=== PATIENT | male | born 1965 | race Caucasian/White ===

== ENCOUNTER 2017-08-21 15:21 | Observation (INO) | payer BC ==
[2017-08-21] MEDS ORDERED: PROVENTIL 2.5 MG/3 ML NEB IH ONE ×2 (15:56→16:04)
--- NOTE | 2017-08-21 16:04 | ERPHSYRPT ---
- History of Present Illness Time Seen by Provider: 08/21/17 15:49 Source: patient Exam Limitations: no limitations Patient Subjective Stated Complaint: increasing sob since sunday night. thinks he might have pneumonia. hx myasthenia gravis, dx 8 yrs ago. is being treated with immune globulin since february. also having some chest pressure with breathing. Triage Nursing Assessment: ambulated to room with slight sob. patient is unable to lie down. states breathing is worse with lieing and sitting. states he feels better if he stands. breath sounds very diminished throughout. Physician History: 52-year-old white male with history of myasthenia gravis, high blood pressure, arrives with complaint of shortness of breath increasing since Sunday 4 days ago. Patient states he's been short of breath he feels tight with breathing in his chest has no vomiting no diarrhea no fevers Past medical history includes myasthenia gravis, high blood pressure Past surgical history includes knee surgery Social history patient chews tobacco Timing/Duration: day(s) (4 days) Activities at Onset: none Severity of Dyspnea-Max: moderate Severity of Dyspnea-Current: moderate Possible Cause: occasional episodes Modifying Factors: Improves With: nothing Associated Symptoms: chest pain/discomfort (patient feels tightness with breathing), tightness, No intermittent, No anxiety, No cough, No edema, No fever , No insomnia, No loss of appetite, No lightheadedness, No wheezing, No weakness , No ankle swelling, No chills, No hemoptysis, No calf pain, No dizziness, No heaviness, No heart racing, No lightheadedness, No leg swelling, No muscle spasms feet, No muscle spasms hands, No painful breathing, No productive cough, No sweating, No tingling face, No tingling hands International travel in last 2 weeks: No Allergies/Adverse Reactions: No Known Drug Allergies Allergy (Verified 08/21/17 15:48) Home Medications: Aspirin EC 81 mg 81 mg PO DAILY 10/02/12 [History] Azathioprine 50 mg PO QID 10/02/12 [History] Losartan/Hydrochlorothiazide [Losartan-Hctz 100-12.5 mg Tab] 1 each PO DAILY [History] Pyridostigmine [place] 1 tab PO UD PRN 04/05/15 [History] Fluticasone/Salmeterol [Airduo Respiclick 113-14 Mcg] 1 each IH BID 08/21/17 [ History] Nebivolol HCl [Bystolic] 10 mg PO DAILY 08/21/17 [History] Hx Tetanus, Diphtheria Vaccination/Date Given: No Hx Influenza Vaccination/Date Given: No Hx Pneumococcal Vaccination/Date Given: No - Review of Systems Constitutional: Malaise, No Fever, No Chills, No Fatigue, No Lethargy, No Night Sweats, No Weakness, No Weight Loss Eyes: No Symptoms Ears, Nose, & Throat: No Symptoms Respiratory: Dyspnea, Other (tightness in chest with breathing), No Cough, No Wheezing Cardiac: No Chest Pain, No Edema, No Syncope Abdominal/Gastrointestinal: No Abdominal Pain, No Nausea, No Vomiting, No Diarrhea Genitourinary Symptoms: No Dysuria Musculoskeletal: No Back Pain, No Neck Pain Skin: No Rash Neurological: No Dizziness, No Focal Weakness, No Sensory Changes Psychological: No Symptoms Endocrine: No Symptoms All Other Systems: Reviewed and Negative - Past Medical History Pertinent Past Medical History: Yes Neurological History: Other ENT History: No Pertinent History Cardiac History: Hypertension Respiratory History: No Pertinent History Endocrine Medical History: Other Musculoskeletal History: Other GI Medical History: No Pertinent History History: No Pertinent History Psycho-Social History: No Pertinent History Male Reproductive Disorders: No Pertinent History Other Medical History: MYTHENIS GRAVIS - Past Surgical History Past Surgical History: Yes Neuro Surgical History: No Pertinent History Cardiac: No Pertinent History Respiratory: No Pertinent History Gastrointestinal: No Pertinent History Genitourinary: Other Musculoskeletal: Orthopedic Surgery Male Surgical History: No Pertinent History Other Surgical History: knee surgery right (torn ligament,arthroscopy) - Social History Smoking Status: Never smoker Exposure to second hand smoke: No Drug Use: none Patient Lives Alone: No - Nursing Vital Signs Nursing Vital Signs: Initial Vital Signs Temperature 97.9 F 08/21/17 15:31 Pulse Rate 103 H 08/21/17 15:31 Respiratory Rate 24 08/21/17 15:31 Blood Pressure 131/79 08/21/17 15:31 O2 Sat by Pulse Oximetry 96 08/21/17 15:31 Pain Scale Pain Intensity 0 - Physical Exam General Appearance: moderate distress, alert Eye Exam: PERRL/EOMI Ears, Nose, Throat Exam: hearing grossly normal, normal ENT inspection, normal pharynx, No abnormal TM (R), No abnormal TM (L) Neck Exam: normal inspection, supple Respiratory Exam: diminished breath sounds Cardiovascular/Chest Exam: normal heart sounds, regular rate/rhythm Abdominal/Gastrointestinal Exam: soft, No tenderness, No distention, No mass Extremity Exam: non-tender, normal range of motion, normal inspection, no calf tenderness, no pedal edema Peripheral Pulses Exam: dorsalis-pedis (R): 2+, dorsalis-pedis (L): 2+ Neurologic Exam: alert, oriented x 3, 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, 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 tested, sensation nml, No motor deficits Skin Exam: normal color, warm, No dry SpO2 Interpretation: normal (96%) SpO2: 96 Oxygen Delivery: Room Air - Course Nursing assessment & vital signs reviewed: Yes EKG Interpreted by Me: RATE (98 bpm), Sinus Rhythm, Other (EKG: Sinus rhythm, 98 bpm, normal axis, no acute ST or T wave changes, essentially normal EKG) - Radiology Exams Chest X-ray Interpretation: Discussed w/ radiologist (chest x-ray: moderately underinflated chestwith right infrahilar infiltrate versus atelectasis) Ordered Tests: Active Orders 24 hr Category Date Time Status [employer] Driver STAT Care 08/21/17 15:57 Active EKG-ER Only STAT Care 08/21/17 15:56 Active IV Insertion STAT Care 08/21/17 15:56 Active Oxygen-ED Only NASAL CANNULA 3 lpm Care 08/21/17 15:56 Active Pulse Oximetry (ED) STAT Care 08/21/17 15:56 Active CHEST 1 VIEW (PORTABLE) Stat Exams 08/21/17 15:57 Completed BLOOD CULTURE Stat Lab 08/21/17 16:00 Received CBC W DIFF Stat Lab 08/21/17 16:03 Completed CMP Stat Lab 08/21/17 16:03 Completed CULTURE,SPUTUM Stat Lab 08/21/17 17:46 Ordered D-DIMER QUANTITATION Stat Lab 08/21/17 16:03 Completed NT PRO BNP Stat Lab 08/21/17 16:03 Completed TROPONIN Q3H Lab 08/21/17 16:03 Completed TROPONIN Q3H Lab 08/21/17 19:00 Ordered TROPONIN Q3H Lab 08/21/17 22:00 Ordered TROPONIN Q3H Lab 08/22/17 01:00 Ordered TROPONIN Q3H Lab 08/22/17 04:00 Ordered VENOUS BLOOD GAS Stat Lab 08/21/17 15:56 Completed Respiratory Nebulizer STAT RT 08/21/17 15:58 Active Medication Summary Generic Name Dose Route Start Last Admin Trade Name Kirt PRN Reason Stop Dose Admin Prednisone 20 mg 08/22/17 18:15 08/21/17 18:19 Deltasone 20 Mg PO 08/22/17 18:16 20 mg STAT ONE Administration Discontinued Medications Generic Name Dose Route Start Last Admin Trade Name Kirt PRN Reason Stop Dose Admin Albuterol Sulfate 2.5 mg 08/21/17 15:56 Proventil 2.5 Mg/3 Ml Neb IH 08/21/17 15:57 STAT ONE Albuterol Sulfate Confirm 08/21/17 16:04 Proventil 2.5 Mg/3 Ml Neb Administered 08/21/17 16:05 Dose 2.5 mg IH .STK-MED ONE Ceftriaxone Sodium/Dextrose 1 g in 50 mls @ 100 mls/hr 08/21/17 16:58 17:38 Rocephin 1 Gm-D5w 50 Ml Bag IV 08/21/17 17:27 100 mls/hr STAT STA Administration Sodium Chloride 1,000 mls @ 999 mls/hr 08/21/17 16:58 08/21/17 17:39 Sodium Chloride 0.9% 1000 Ml IV 08/21/17 17:58 999 mls/hr .Q1H1M STA Administration Sodium Chloride Confirm 08/21/17 17:37 Sodium Chloride 0.9% 1000 Ml Administered 08/21/17 17:38 Dose 1,000 mls @ ud .ROUTE .STK-MED ONE Ceftriaxone Sodium/Dextrose Confirm 08/21/17 17:38 Rocephin 1 Gm-D5w 50 Ml Bag Administered 08/21/17 17:39 Dose 1 g in 50 mls @ ud IV .STK-MED ONE Oseltamivir Phosphate 75 mg 08/21/17 18:12 08/21/17 18:19 Tamiflu 75mg Capsule PO 08/21/17 18:13 75 mg STAT ONE Administration Oseltamivir Phosphate Confirm 08/21/17 18:18 Tamiflu 75mg Capsule Administered 08/21/17 18:19 Dose 75 mg PO .STK-MED ONE Prednisone Confirm 08/21/17 18:18 Deltasone 20 Mg Administered 08/21/17 18:19 Dose 20 mg .ROUTE .STK-MED ONE Lab/Rad Data: Laboratory Result Diagrams 08/21/17 16:03 08/21/17 16:03 Laboratory Results 08/21/17 08/21/17 08/21/17 Range/Units 17:00 16:03 16:03 WBC (4.0-10.5) K/mm3 RBC (4.1-5.6) M/mm3 Hgb (12.5-18.0) gm/dl Hct (42-50) % MCV (78-100) fl MCH (26-32) pg MCHC (32-36) g/dl RDW (11.5-14.0) % Plt Count (150-450) K/mm3 MPV (6-9.5) fl Gran % (36.0-66.0) % Lymphocytes % (24.0-44.0) % Monocytes % (0.0-12.0) % Eosinophils % (0.00-5.0) % Basophils % (0.0-0.4) % Basophils # (0-0.4) D-Dimer 353.87 (0-500) ng/mL VBG pH (7.32-7.42) VBG pCO2 at Pat Temp (42-55) mm/Hg VBG pO2 at Pat Temp (25-40) mm/Hg VBG HCO3 (22-28) meq/L VBG O2 Sat (Rupesh) (95-100) VBG Base Excess (-2.0-2.0) VBG Hemoglobin VBG Carboxyhemoglobin (0.0-6.9) % T HGB POC Potassium (3.5-5.1) Sodium (136-145) mEq/L Potassium (3.5-5.1) mEq/L Chloride (98-107) mEq/L Carbon Dioxide (21-32) mEq/L Anion Gap (5-15) MEQ/L BUN (9-20) mg/dL Creatinine (0.55-1.30) mg/dl Estimated GFR ML/MIN Glucose (70-110) MG/DL Calcium (8.5-10.1) mg/dL Total Bilirubin (0.2-1.0) mg/dL AST (15-37) U/L ALT (12-78) U/L Alkaline Phosphatase (46-116) U/L Troponin I < 0.017 (0.000-0.056) ng/ml NT-Pro-B Natriuret Pep (0-125) pg/ml Serum Total Protein (6.4-8.2) gm/dL Albumin (3.4-5.0) g/dL Influenza Type A Ag POSITIVE (NEGATIVE) Influenza Type B Ag NEGATIVE (NEGATIVE) RSV (PCR) NEGATIVE (Negative) 08/21/17 08/21/17 08/21/17 Range/Units 16:03 16:03 15:56 WBC 8.7 (4.0-10.5) K/mm3 RBC 4.83 (4.1-5.6) M/mm3 Hgb 15.1 (12.5-18.0) gm/dl Hct 47.7 (42-50) % MCV 98.8 (78-100) fl MCH 31.3 (26-32) pg MCHC 31.7 L (32-36) g/dl RDW 14.4 H (11.5-14.0) % Plt Count 233 (150-450) K/mm3 MPV 10.2 H (6-9.5) fl Gran % 75.3 H (36.0-66.0) % Lymphocytes % 8.7 L (24.0-44.0) % Monocytes % 11.8 (0.0-12.0) % Eosinophils % 3.9 (0.00-5.0) % Basophils % 0.3 (0.0-0.4) % Basophils # 0.03 (0-0.4) D-Dimer (0-500) ng/mL VBG pH 7.36 (7.32-7.42) VBG pCO2 at Pat Temp 60 H (42-55) mm/Hg VBG pO2 at Pat Temp 30 (25-40) mm/Hg VBG HCO3 33.9 H* (22-28) meq/L VBG O2 Sat (Rupesh) 63.2 L (95-100) VBG Base Excess 6.2 H (-2.0-2.0) VBG Hemoglobin 15.2 VBG Carboxyhemoglobin 2.5 (0.0-6.9) % T HGB POC Potassium 3.9 (3.5-5.1) Sodium 142 (136-145) mEq/L Potassium 3.5 (3.5-5.1) mEq/L Chloride 104 (98-107) mEq/L Carbon Dioxide 28.7 (21-32) mEq/L Anion Gap 13.1 (5-15) MEQ/L BUN 18 (9-20) mg/dL Creatinine 1.14 (0.55-1.30) mg/dl Estimated GFR > 60 ML/MIN Glucose 101 (70-110) MG/DL Calcium 9.3 (8.5-10.1) mg/dL Total Bilirubin 0.90 (0.2-1.0) mg/dL AST 26 (15-37) U/L ALT 43 (12-78) U/L Alkaline Phosphatase 68 (46-116) U/L Troponin I (0.000-0.056) ng/ml NT-Pro-B Natriuret Pep 65 (0-125) pg/ml Serum Total Protein 8.8 H (6.4-8.2) gm/dL Albumin 4.0 (3.4-5.0) g/dL Influenza Type A Ag (NEGATIVE) Influenza Type B Ag (NEGATIVE) RSV (PCR) (Negative) - Progress Progress: improved Air Movement: fair Progress Note: 08/21/17 18:22 52-year-old white male with a history of mild stimulator gravis arrives with complaint of shortness of breath cough symptoms since Sunday, 4 days ago patient felt like he has pneumonia. On arrival patient had diminished breath sounds throughout he had a fairly frequent cough. Patient's oxygen saturation was stable. Patient was given albuterol treatment patient's chest x-ray right perihilar infiltrate versus atelectasis was noted patient's EKG sinus rhythm 98 bpm normal axis no acute ST or T wave changes noted Patient's lab work CBC white blood cell 8.7 hemoglobin 15.1 hematocrit 47.7 d- dimer 353 Venous gases pH 7.36 PCO2 60 Chemistry is stable sodium 142 potassium 3.5 chloride 104 bicarbonate 28.7 BUN 18 creatinine 1.14 glucose 101 troponin is less than 0.017 BNP is 65 Patient's influenza is positive Patient is given IV normal saline, blood cultures and sputum cultures were obtained patient given Rocephin. Because of the patient's history of myasthenia gravis and reluctance to give corticosteroids I discussed the case with Dr. SANDRA Calderon. He stated that we can give the patient 20 mg one time dose of prednisone here in the emergency room will give patient Tamiflu. He recommended patient could be observed overnight with continued Rocephin, Zithromax, Tamiflu, albuterol treatments, IV fluids. He stated that he would most likely see the patient tomorrow. I've discussed the case with Dr. Ng who is guidance and control system engineer for Dr. Caro. She is agreeable with this course of treatment Will go ahead and place patient on observation. . Blood Culture(s) Obtained: Yes Antibiotics given: Yes - Departure Time of Disposition: 18:25 Departure Disposition: Observation Clinical Impression: Bronchitis with bronchospasm, perihilar pneumonia, Influenza A, History of myasthenia gravis Condition: Fair Critical Care Time: No Referrals: NICHOLAS CARO MD [Primary Care Provider] -
[2017-08-21 16:11] LABS: BASOPHIL % 0.3 % (0.0-0.4); Basophil (Absolute #) 0.03 (0-0.4); Eosinophil % 3.9 % (0.00-5.0); Eosinophil (Absolute #) 0.34 (0-0.5); Granulocyte Absolute (ANC) 6.56 (1.4-6.9); Granulocytes % 75.3 % (36.0-66.0); Hematocrit 47.7 % (42-50); Hemoglobin 15.1 gm/dl (12.5-18.0); Lymphocyte (Absolute #) 0.76 (1.0-4.6); Lymphocytes % 8.7 % (24.0-44.0); Mean Cell Volume 98.8 fl (78-100); Mean Corpuscular Hemoglobin 31.3 pg (26-32); Mean Corpuscular Hgb Concent. 31.7 g/dl (32-36); Mean Platelet Volume 10.2 fl (6-9.5); Monocyte (Absolute #) 1.03 (0.0-1.3); Monocytes % 11.8 % (0.0-12.0); Platelet Count 233 K/mm3 (150-450); Red Blood Count 4.83 M/mm3 (4.1-5.6); Red Cell Distribution Width 14.4 % (11.5-14.0); White Blood Count 8.7 K/mm3 (4.0-10.5)
--- NOTE | 2017-08-21 16:15 | XRAY ---
Indication: Short of breath. Comparison: April 10, 2017. Portable chest moderately underinflated today with now right infrahilar infiltrate versus atelectasis. Remaining heart, lungs, and bony thorax unremarkable.
[2017-08-21 16:16] LABS: VBG BASE EXCESS 6.2 (-2.0-2.0); VBG CARBOXYHEMOGLOBIN 2.5 % T HGB (0.0-6.9); VBG HCO3- 33.9 meq/L (22-28); VBG HEMOGLOBIN 15.2; VBG O2 SATURATION 63.2 (95-100); VBG POTASSIUM 3.9 (3.5-5.1); VBG pH 7.36 (7.32-7.42)
[2017-08-21 16:29] LABS: ALKALINE PHOSPHATASE 68 U/L (46-116); ANION GAP 13.1 MEQ/L (5-15); BLOOD UREA NITROGEN 18 mg/dL (9-20); CHLORIDE 104 mEq/L (98-107); Calcium 9.3 mg/dL (8.5-10.1); Carbon Dioxide 28.7 mEq/L (21-32); Creatinine 1 1.14 mg/dl (0.55-1.30); EST GLOMERULAR FILTRATION RATE > 60 ML/MIN; Glucose 101 MG/DL (70-110); NT PRO BNP 65 pg/ml (0-125); Potassium 3.5 mEq/L (3.5-5.1); SGOT/AST 26 U/L (15-37); SGPT/ALT 43 U/L (12-78); SODIUM 142 mEq/L (136-145); Total Protein 8.8 gm/dL (6.4-8.2)
[2017-08-21] MEDS ORDERED: Sodium Chloride 0.9% 1000 ML 1,000 ML IV STA (16:58)
[2017-08-21] MEDS ORDERED: ROCEPHIN 1 Gm-D5w 50 ml Bag** 1 G/50 ML IVPB IV STA (16:58)
[2017-08-21] MEDS ORDERED: Sodium Chloride 0.9% 1000 ML 1,000 ML ONE (17:37)
[2017-08-21] MEDS ORDERED: ROCEPHIN 1 Gm-D5w 50 ml Bag** 1 G/50 ML IVPB IV ONE (17:38)
[2017-08-21 18:10] LABS: INFLUENZA A POSITIVE (NEGATIVE); INFLUENZA B NEGATIVE (NEGATIVE); RESPIRATORY SYNCTIAL VIRUS NEGATIVE (Negative)
[2017-08-21] MEDS ORDERED: Tamiflu 75MG Capsule PO ONE ×2 (18:12→18:18)
[2017-08-21] MEDS ORDERED: DELTASONE 20 MG ONE (18:18)
[2017-08-21] MEDS: Tamiflu 75MG Capsule PO SCH (20:34)
[2017-08-21] MEDS ORDERED: PROVENTIL Solution 2.5 MG/0.5 ML IH ONE (21:18)
[2017-08-21] MEDS ORDERED: ECOTRIN 81 MG PO ONE (21:22)
[2017-08-21] MEDS: Sodium Chloride 0.9% 1000 ML 1,000 ML IV SCH (21:42)
[2017-08-21] MEDS ORDERED: hydroDIURIL 25 MG PO ONE (22:00)
[2017-08-21] MEDS ORDERED: Cozaar 50 MG PO ONE (22:00)
[2017-08-21] MEDS: PROVENTIL 2.5 MG/3 ML NEB IH PRN (22:07)
[2017-08-21] MEDS: ADVAIR 250-50 DISKUS 14 DOSE IH SCH (22:09)
[2017-08-21] MEDS ORDERED: Bystolic 5 MG PO ONE (22:30)
[2017-08-22 06:06] LABS: Hematocrit 43.3 % (42-50); Hemoglobin 13.4 gm/dl (12.5-18.0); Mean Cell Volume 99.3 fl (78-100); Mean Corpuscular Hemoglobin 30.7 pg (26-32); Mean Corpuscular Hgb Concent. 30.9 g/dl (32-36); Mean Platelet Volume 10.2 fl (6-9.5); Platelet Count 223 K/mm3 (150-450); Red Blood Count 4.36 M/mm3 (4.1-5.6); Red Cell Distribution Width 14.3 % (11.5-14.0); White Blood Count 8.4 K/mm3 (4.0-10.5)
[2017-08-22 06:40] LABS: ALBUMIN 3.4 g/dL (3.4-5.0); ALKALINE PHOSPHATASE 56 U/L (46-116); ANION GAP 10.1 MEQ/L (5-15); BLOOD UREA NITROGEN 18 mg/dL (9-20); CHLORIDE 107 mEq/L (98-107); Calcium 9.2 mg/dL (8.5-10.1); Carbon Dioxide 29.3 mEq/L (21-32); Creatinine 1 0.99 mg/dl (0.55-1.30); EST GLOMERULAR FILTRATION RATE > 60 ML/MIN; Glucose 138 MG/DL (70-110); SGOT/AST 23 U/L (15-37); SGPT/ALT 39 U/L (12-78); SODIUM 142 mEq/L (136-145); Total Protein 7.8 gm/dL (6.4-8.2)
[2017-08-22] MEDS ORDERED: PYRIDOSTIGMINE BROMIDE PO PRN (07:26)
[2017-08-22] MEDS: ADVAIR 250-50 DISKUS 14 DOSE IH SCH ×2 (07:28→18:44)
[2017-08-22 07:31] LABS: Lymphocytes 11 % (24-44); Monocyte 10 % (0.0-12.0); Neutrophils 79 % (36.-66.); Platelet Estimate NORMAL (NORMAL); Total Cells Counted 100
[2017-08-22] MEDS ORDERED: MEDICATION INTERVENTION MC PRN ×2 (07:40→07:48)
[2017-08-22] MEDS: Sodium Chloride 0.9% 1000 ML 1,000 ML IV SCH ×2 (08:48→20:13)
--- NOTE | 2017-08-22 09:11 | PCM.HP ---
History of Present Illness - Chief Complaint Chief Complaint: SOB, bronchitis History of Present Illness: is a 52 year old male who presented to the ER with cough, fever and shortness of breath. He has progressively been feeling worse over the last day before arrival. He has improved since admission and is feeling slightly better today. - Review of Systems Constitutional: Fever, Chills Respiratory: Cough, Short Of Breath Cardiac: No Chest Pain, No Edema, No Syncope Abdominal/Gastrointestinal: No Abdominal Pain, No Nausea, No Vomiting, No Diarrhea Skin: No Rash All Other Systems: Reviewed and Negative Medications & Allergies Home Medications: Home Medication List Aspirin EC 81 mg 81 mg PO DAILY 10/02/12 [History Confirmed 08/21/17] Azathioprine 50 mg PO QID 10/02/12 [History Confirmed 08/21/17] Losartan/Hydrochlorothiazide [Losartan-Hctz 100-12.5 mg Tab] 1 each PO DAILY [History Confirmed 08/21/17] Pyridostigmine [place] 60 tab PO UD PRN 04/05/15 [History Confirmed 08/21/17] Fluticasone/Salmeterol [Airduo Respiclick 113-14 Mcg] 1 each IH BID 08/21/17 [ History Confirmed 08/21/17] Nebivolol HCl [Bystolic] 10 mg PO DAILY 08/21/17 [History Confirmed 08/21/17] Allergies/Adverse Reactions: Allergies Allergy/AdvReac Type Severity Reaction Status Date / Time No Known Drug Allergies Allergy Verified 08/21/17 15:48 - Past Medical History Past Medical History: Yes Neurological History: Other ENT History: No Pertinent History Cardiac History: Hypertension Respiratory History: No Pertinent History Endocrine Medical History: Other Musculoskelatal History: Other GI Medical History: No Pertinent History History: No Pertinent History Pyscho-Social History: No Pertinent History Male Reproductive Disorders: No Pertinent History Comment: MYASTHENIA GRAVIS - Past Surgical History Past Surgical History: Yes Neuro Surgical History: No Pertinent History Cardiac History: No Pertinent History Respiratory Surgery: No Pertinent History GI Surgical History: No Pertinent History Genitourinary Surgical Hx: Other Musculskeletal Surgical Hx: Orthopedic Surgery Male Surgical History: No Pertinent History Other Surgical History: knee surgery right (torn ligament,arthroscopy) - Social History Smoking Status: Never smoker Exposure to second hand smoke: No Alcohol: None Drug Use: none - Physical Exam Vital Signs: Vital Signs - 24 hr Temp Pulse Resp BP Pulse Ox 08/22/17 07:33 73 20 92 L 08/22/17 07:14 97.5 F 70 20 117/66 91 L 08/22/17 04:00 97.9 F 74 20 121/58 94 L 08/22/17 00:00 98.4 F 104 H 20 129/65 92 L 08/21/17 22:07 88 20 94 L 08/21/17 20:13 97.9 F 94 H 23 134/76 94 L 08/21/17 18:50 97.9 F 94 H 23 134/76 94 L 08/21/17 18:29 102 H 20 124/89 96 08/21/17 18:26 96 08/21/17 17:15 97 H 22 116/81 95 08/21/17 16:20 107 H 22 116/72 92 L 08/21/17 16:19 91 L 08/21/17 15:31 97.9 F 103 H 24 131/79 96 Oxygen-Last 24 hours O2 Percentage 4 Liters = 36% O2 Percentage 2 Liters = 28% O2 Percentage 2 Liters = 28% O2 Percentage 2 Liters = 28% General Appearance: no apparent distress, alert, obese Respiratory Exam: normal breath sounds, lungs clear, rhonchi (right base), No respiratory distress Cardiovascular Exam: regular rate/rhythm, normal heart sounds, normal peripheral pulses Gastrointestinal/Abdomen Exam: soft, normal bowel sounds, No tenderness, No mass Extremity Exam: normal inspection, normal range of motion, pelvis stable Results - Labs Lab/Micro Results: Lab Results-Last 24 Hours 08/21/17 08/22/17 08/22/17 Range/Units 19:05 06:00 06:00 WBC 8.4 (4.0-10.5) K/mm3 RBC 4.36 (4.1-5.6) M/mm3 Hgb 13.4 (12.5-18.0) gm/dl Hct 43.3 (42-50) % MCV 99.3 (78-100) fl MCH 30.7 (26-32) pg MCHC 30.9 L (32-36) g/dl RDW 14.3 H (11.5-14.0) % Plt Count 223 (150-450) K/mm3 MPV 10.2 H (6-9.5) fl Segmented Neutrophils 79 H (36.-66.) % Lymphocytes (Manual) 11 L (24-44) % Monocytes (Manual) 10 (0.0-12.0) % Differential Comment NORMAL Platelet Estimate NORMAL (NORMAL) Sodium 142 (136-145) mEq/L Potassium 4.0 (3.5-5.1) mEq/L Chloride 107 (98-107) mEq/L Carbon Dioxide 29.3 (21-32) mEq/L Anion Gap 10.1 (5-15) MEQ/L BUN 18 (9-20) mg/dL Creatinine 0.99 (0.55-1.30) mg/dl Estimated GFR > 60 ML/MIN Glucose 138 H (70-110) MG/DL Calcium 9.2 (8.5-10.1) mg/dL Total Bilirubin 0.60 (0.2-1.0) mg/dL AST 23 (15-37) U/L ALT 39 (12-78) U/L Alkaline Phosphatase 56 (46-116) U/L Troponin I < 0.017 (0.000-0.056) ng/ml Serum Total Protein 7.8 (6.4-8.2) gm/dL Albumin 3.4 (3.4-5.0) g/dL Microbiology 08/21/17 18:55 Gram Stain - Final Sputum - Expectorant - Other Procedures and Tests Respiratory Therapy 08/21/17 19:00 Respiratory MDI BID 08/21/17 21:54 Oxygen NASAL CANNULA 2 lpm Respiratory Nebulizer PRN Assessment/Plan (1) Influenza A Current Visit: Yes Status: Acute Assessment & Plan: on tamiflu, push fluids Code(s): J10.1 - FLU DUE TO OTH IDENT INFLUENZA VIRUS W OTH RESP MANIFEST (2) Pneumonia Current Visit: Yes Status: Acute Assessment & Plan: on rocephin and zithromax, nebs Code(s): J18.9 - PNEUMONIA, UNSPECIFIED ORGANISM (3) History of myasthenia gravis Current Visit: Yes Status: Acute Code(s): Z86.69 - PERSONAL HISTORY OF DIS OF THE NERVOUS SYS AND SENSE ORGANS
[2017-08-22] MEDS: Tamiflu 75MG Capsule PO SCH ×2 (09:46→20:57)
[2017-08-22] MEDS ORDERED: ASPIRIN 81 MG PO SCH (10:00)
[2017-08-22] MEDS ORDERED: NON-FORMULARY ITEM (Losartan/Hydrochlorothiazide [Losartan-Hctz 100-12.5 Mg Tab] 1 EACH) PO SCH (10:00)
[2017-08-22] MEDS ORDERED: Bystolic 5 MG PO SCH (10:00)
[2017-08-22] MEDS ORDERED: Cozaar 50 MG PO SCH (10:00)
[2017-08-22] MEDS ORDERED: ROCEPHIN 1 Gm-D5w 50 ml Bag** 1 G/50 ML IVPB IV SCH (10:00)
[2017-08-22] MEDS ORDERED: Zithromax 500 MG/ 250 ML NaCl Premix 500 MG/250 ML IVPB IV SCH (10:00)
[2017-08-22] MEDS ORDERED: ECOTRIN 81 MG PO SCH ×2 (10:00)
[2017-08-22] MEDS ORDERED: NON-FORMULARY ITEM (Nebivolol Hcl [Bystolic] 10 MG) PO SCH (10:00)
[2017-08-22] MEDS ORDERED: AZATHIOPRINE 50 MG PO SCH (10:00)
[2017-08-22] MEDS ORDERED: hydroDIURIL 25 MG PO SCH (10:00)
[2017-08-22] MEDS ORDERED: PATIENT OWN MEDICATION PO PRN ×2 (10:51→11:50)
[2017-08-22] MEDS ORDERED: ENOXAPARIN SODIUM SQ SCH (11:00)
[2017-08-22] MEDS: PROVENTIL 2.5 MG/3 ML NEB IH PRN (11:25)
[2017-08-22] MEDS ORDERED: PATIENT OWN MEDICATION PO SCH ×3 (12:00→13:00)
[2017-08-22] MEDS: PROVENTIL 2.5 MG/3 ML NEB IH SCH ×3 (15:01→22:47)
[2017-08-22] MEDS ORDERED: DELTASONE 20 MG PO ONE ×2 (18:15→18:23)
[2017-08-23] MEDS: PROVENTIL 2.5 MG/3 ML NEB IH SCH ×2 (03:03→07:06)
[2017-08-23 06:26] LABS: BASOPHIL % 0.3 % (0.0-0.4); Basophil (Absolute #) 0.02 (0-0.4); Eosinophil % 4.4 % (0.00-5.0); Eosinophil (Absolute #) 0.28 (0-0.5); Granulocyte Absolute (ANC) 4.22 (1.4-6.9); Granulocytes % 66.6 % (36.0-66.0); Hematocrit 39.5 % (42-50); Hemoglobin 12.2 gm/dl (12.5-18.0); Lymphocyte (Absolute #) 1.03 (1.0-4.6); Lymphocytes % 16.2 % (24.0-44.0); Mean Corpuscular Hgb Concent. 30.9 g/dl (32-36); Mean Platelet Volume 10.3 fl (6-9.5); Monocyte (Absolute #) 0.79 (0.0-1.3); Monocytes % 12.5 % (0.0-12.0); Platelet Count 195 K/mm3 (150-450); Red Blood Count 3.95 M/mm3 (4.1-5.6); Red Cell Distribution Width 14.2 % (11.5-14.0); White Blood Count 6.3 K/mm3 (4.0-10.5)
[2017-08-23] MEDS: Sodium Chloride 0.9% 1000 ML 1,000 ML IV SCH (06:26)
[2017-08-23 06:38] LABS: ALBUMIN 3.3 g/dL (3.4-5.0); ALKALINE PHOSPHATASE 52 U/L (46-116); ANION GAP 9.5 MEQ/L (5-15); BLOOD UREA NITROGEN 17 mg/dL (9-20); CHLORIDE 106 mEq/L (98-107); Calcium 8.7 mg/dL (8.5-10.1); Carbon Dioxide 27.9 mEq/L (21-32); Creatinine 1 0.92 mg/dl (0.55-1.30); EST GLOMERULAR FILTRATION RATE > 60 ML/MIN; Glucose 106 MG/DL (70-110); Potassium 3.7 mEq/L (3.5-5.1); SGOT/AST 28 U/L (15-37); SGPT/ALT 44 U/L (12-78); SODIUM 140 mEq/L (136-145); Total Protein 7.2 gm/dL (6.4-8.2)
[2017-08-23 06:40] LABS: Mean Corpuscular Hemoglobin 30.8 pg (26-32)
[2017-08-23] MEDS: ADVAIR 250-50 DISKUS 14 DOSE IH SCH (07:06)
[2017-08-23 07:10] VITALS: BP 122/69; PULSE 74; O2SAT 96
--- NOTE | 2017-08-23 08:39 | PCM.DS ---
Discharge Summary Date of Admission: 08/21/17 18:47 Admitting Physician: NICHOLAS CARO Primary Care Provider: NICHOALS CARO Allergies Allergies No Known Drug Allergies Allergy (Verified 08/21/17 15:48) Hospital Summary - Hospital Course Hospital Course: Kip was admitted after being seen in ER c/o shortness of breath. flu A+ and had pneumonia on chest xray. has improved on tamiflu, nebs and abx. - Vitals & Intake/Output Vital Signs: Vital Signs Temperature 97.8 F 08/23/17 07:09 Pulse Rate 74 08/23/17 07:09 Respiratory Rate 20 08/23/17 07:09 Blood Pressure 122/69 08/23/17 07:09 O2 Sat by Pulse Oximetry 96 08/23/17 07:09 Oxygen-Last Documented O2 Percentage 2 Liters = 28% Intake & Output: Intake & Output 08/20/17 08/21/17 08/22/17 08/23/17 11:59 11:59 11:59 11:59 Intake Total 1829 4718 Balance 1829 4718 Weight 136.985 kg 136.985 kg - Lab Result Diagrams: 08/23/17 05:00 08/23/17 05:00 Lab Results-Last 24 Hrs: Lab Results-Last 24 Hours 08/23/17 08/23/17 Range/Units 05:00 05:00 WBC 6.3 (4.0-10.5) K/mm3 RBC 3.95 L (4.1-5.6) M/mm3 Hgb 12.2 L (12.5-18.0) gm/dl Hct 39.5 L (42-50) % MCV 100.0 (78-100) fl MCH 30.8 (26-32) pg MCHC 30.9 L (32-36) g/dl RDW 14.2 H (11.5-14.0) % Plt Count 195 (150-450) K/mm3 MPV 10.3 H (6-9.5) fl Gran % 66.6 H (36.0-66.0) % Lymphocytes % 16.2 L (24.0-44.0) % Monocytes % 12.5 H (0.0-12.0) % Eosinophils % 4.4 (0.00-5.0) % Basophils % 0.3 (0.0-0.4) % Basophils # 0.02 (0-0.4) Sodium 140 (136-145) mEq/L Potassium 3.7 (3.5-5.1) mEq/L Chloride 106 (98-107) mEq/L Carbon Dioxide 27.9 (21-32) mEq/L Anion Gap 9.5 (5-15) MEQ/L BUN 17 (9-20) mg/dL Creatinine 0.92 (0.55-1.30) mg/dl Estimated GFR > 60 ML/MIN Glucose 106 (70-110) MG/DL Calcium 8.7 (8.5-10.1) mg/dL Total Bilirubin 0.60 (0.2-1.0) mg/dL AST 28 (15-37) U/L ALT 44 (12-78) U/L Alkaline Phosphatase 52 (46-116) U/L Serum Total Protein 7.2 (6.4-8.2) gm/dL Albumin 3.3 L (3.4-5.0) g/dL Micro Results-Entire Visit: Microbiology 08/21/17 18:55 Gram Stain - Final Sputum - Expectorant - Procedures and Test Procedures and Tests throughout Hospitalization: Therapy Orders & Screens 08/21/17 15:58 Respiratory Nebulizer STAT Comment: Diagnosis: Shortness of Breath 08/21/17 19:00 Respiratory MDI BID Comment: ADVAIR 250/50 1 PUFF BID Diagnosis: SOB, bronchitis 08/21/17 20:22 RT Screen per Nursing Assess ONCE Comment: Protocol Order Physician Instructions: Greater than 3 points order RT Admission Screen Reason For Exam: Triggered on Admission Diagnosis: SOB, bronchitis Diagnosis: SOB, bronchitis Pneumonia: Yes Home O2: No Asthma: No CHF: No Home CPAP/BIPAP: Yes Home Nebs/MDI: Yes Total Points: 13 08/21/17 21:54 Oxygen NASAL CANNULA 2 lpm Comment: TO KEEP SPO2 >92% PER R.T. PROTOCOL Diagnosis: SOB, bronchitis Respiratory Nebulizer PRN Comment: ALBUTEROL Q4PRN FOR SOB/WHEEZING Diagnosis: SOB, bronchitis 08/21/17 21:55 Respiratory Therapy Consult ROUTINE Comment: Reason For Exam: Diagnosis: SOB, bronchitis 08/22/17 15:00 Respiratory Nebulizer Q4H Comment: ALBUTEROL Q4 Diagnosis: SOB, bronchitis Discharge Exam General Appearance: no apparent distress, alert, obese Neurologic Exam: alert, oriented x 3 Skin Exam: normal color, warm, dry Respiratory Exam: normal breath sounds, lungs clear, No respiratory distress Cardiovascular Exam: regular rate/rhythm, normal heart sounds Gastrointestinal/Abdomen Exam: soft, No tenderness, No mass Extremity Exam: normal inspection, normal range of motion Final Diagnosis/Problem List - Final Discharge Diagnosis/Problem (1) Influenza A Current Visit: Yes Status: Acute (2) Pneumonia Current Visit: Yes Status: Acute (3) History of myasthenia gravis Current Visit: Yes Status: Acute - Discharge Disposition: Home, Self-Care Condition: Good Prescriptions: New Albuterol Sulfate [Albuterol Sulfate Hfa] 2 puffs IH Q4-6HPRN PRN #2 [email or web address] PRN Reason: Shortness Of Breath Amox Tr/Potass Clav. 500 mg [Augmentin 500-125 Tablet] 500 mg PO TID # 30 tablet Oseltamivir 75 mg [Tamiflu 75MG Capsule] 75 mg PO BID #6 cap Continue Pyridostigmine [place] 60 tab PO TIDPRN PRN PRN Reason: myasthenia gravis Losartan/Hydrochlorothiazide [Losartan-Hctz 100-12.5 mg Tab] 1 each PO DAILY Nebivolol HCl [Bystolic] 10 mg PO DAILY Fluticasone/Salmeterol [Airduo Respiclick 113-14 Mcg] 1 each IH BID Azathioprine [Imuran] 4 tab PO DAILY Aspirin EC 81 mg [Ecotrin 81 mg] 81 mg PO DAILY Pyridostigmine [place] [Pyridostigmine [place] ER] 180 mg PO DAILY Follow up with: NICHOLAS CARO MD [Primary Care Provider] - (has appt on 08/27/17) Forms: Patient Portal Information
== END 2017-08-23 09:30 | disposition home or self-care (01) ==
LOC: ED 15:21 → MED SURG 18:47
PROVIDERS: ADMIT Family Medicine; ATTEND Family Medicine
DX: J09.X1 Influenza due to identified novel influenza A virus with pneumonia (principal); Z86.69 Personal history of other diseases of the nervous system and sense organs
CPT/HCPCS: 36000; 36415; 71045; 80053; 82805; 83880; 84484; 85025; 85379; 87040; 87070; 87631; 93005; 93041; 93268; 94640; 94760; 96360; 96365; 99285; G0378; J0456; J0696; J1650; A9270-GY

== ENCOUNTER 2019-02-17 11:52 | Day surgery (SDC) | payer OTHER ==
--- NOTE | 2019-02-17 09:57 | HP ---
DATE OF SURGERY: 02/17/2019 HISTORY OF PRESENT ILLNESS: The patient 53 year-old who gets gamma plex he says. He has myasthenia gravis. He is in need of snf access for IV infusions. PAST MEDICAL HISTORY: Myasthenia gravis. Hypertension. PAST SURGICAL HISTORY: Fatty tumor removed noncancerous behind his ear in the past. MEDICATIONS: Mestinon, pyridostigmine, Cozaar, Bystolic, azathioprine. ALLERGIES: NKDA. FAMILY HISTORY: Negative in regards to this problem. SOCIAL HISTORY: He chews but denies smoking or alcohol abuse currently. REVIEW OF SYSTEMS: Fourteen systems reviewed per admission assessment. No chest pain or palpitations other systems negative or noncontributory as above and per preadmission questionnaire. PHYSICAL EXAMINATION: GENERAL: No acute distress. HEENT: Sclerae nonicteric. NECK: No JVD. CHEST: Equal excursion, nonlabored breathing. CVS: Regular rate and rhythm. ABDOMEN: Soft. No peritoneal signs. EXTREMITIES: No significant edema. NEURO: Alert, oriented, moving extremities symmetrically. No gross motor deficits noted. IMPRESSION: History of myasthenia gravis, need for terminal carman IV access for IV treatments. I feel he is a candidate for Port-A-Cath placement. Explained the risks and benefits in detail including but not limited to bleeding or infection, risk of thrombosis or pneumothorax, risk of port or catheter fracture or failure possible requiring removal or replacement, risk of major venous tear, risk of ongoing morbidity/mortality, small risk of arterial puncture, general risk of anesthesia or sedation but not limited to, risk of infection of the port possibly requiring removal down the road or nonfunction of the port possibly requiring other studies or even replacement. He understands all of the above but not limited, will proceed with outpatient Port-A-Cath placement under MAC or general anesthesia.
[~2019-02-17 11:52] MED LIST: Lactated Ringers 1,000 ML IV SCH
[2019-02-17] MEDS ORDERED: CEFAZOLIN 2 GM-D5W BAG** 2 GM/50 ML ML IV ONE ×2 (12:03→12:09)
[2019-02-17] MEDS ORDERED: Lactated Ringers 1,000 ML IV ONE ×2 (12:04→13:56)
[2019-02-17] MEDS ORDERED: XYLOCAINE 1% HCL 20 ML MDV ONE ×2 (13:56→14:31)
[2019-02-17] MEDS ORDERED: Versed 2 MG/2 ML Injection ONE (14:19)
[2019-02-17] MEDS ORDERED: DIPRIVAN 200 MG/20 ML IV ONE ×2 (14:19→14:46)
[2019-02-17] MEDS ORDERED: Ketamine HCl 50 MG/ML ONE ×3 (14:22→14:56)
[2019-02-17] MEDS ORDERED: APRESOLINE 20 MG/ML INJ ONE ×2 (14:39→15:17)
[2019-02-17] MEDS ORDERED: Thrombin-JMI 5000 UNITS TP ONE (14:49)
[2019-02-17] MEDS ORDERED: Romazicon 0.5 MG/5 ML Injection ONE (15:03)
[2019-02-17] MEDS ORDERED: LOPRESSOR 5 MG/5 ML INJECTION IV ONE (15:17)
[2019-02-17] MEDS ORDERED: Compazine 10 MG/2 ML ONE (15:25)
--- NOTE | 2019-02-17 16:15 | XRAY ---
Indication: Port placement. Intraoperative fluoroscopy was provided for 8 seconds. Single digital spot image submitted for interpretation demonstrates incompletely visualized left Port-A-Cath with the tip projecting over the left clavicle head, presumed subclavian vein. Correlate with intraoperative findings/report.
--- NOTE | 2019-02-17 16:17 | XRAY ---
Indication: Port placement. Comparison: August 21, 2017. Portable chest slightly underinflated with bibasilar infiltrates versus atelectasis and small left effusion. Left Port-A-Cath tip seen right of midline presumed in the SVC. No pneumothorax. Heart is not enlarged
[2019-02-17 16:44] VITALS: O2SAT 91
[2019-02-17 17:22] VITALS: BP 156/76; PULSE 90
--- NOTE | 2019-02-18 08:14 | OP ---
SURGERY DATE/TIME: 02/17/2019 1419 PREOPERATIVE DIAGNOSIS: History of myasthenia gravis, need for multiple infusions, poor peripheral access, need for assisted IV access need for Port-A-Cath. 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 PROCEDURE: Tunnel Port-A-Cath placement with C-arm fluoroscopy left subclavian vein. SURGEON: Dr. Pedro Dempsey. ANESTHESIA: MAC. 1% lidocaine local. ESTIMATED BLOOD LOSS: Minimal. INDICATIONS: As noted above. Risks and benefits explained in detail and not limited to as outlined by surgical hospital visit consult and consent was obtained. DESCRIPTION OF PROCEDURE AND FINDINGS: The patient is taken to the operating room. MAC anesthesia introduced. After official time out and no disagreement with planned procedure, Trendelenburg position, 1% lidocaine local infiltrated in left subclavicular area. An 18 gauge cannulation needle inserted on first pass. Good dark nonpulsatile venous return. Guide wire passed without difficulty, confirmed down the superior vena cava by C-arm fluoroscopy. Given his body habitus and obesity it was difficult to get a good picture on C-arm but the wire is definitely going down the superior vena cava. Lung miranda were noted to be up bilaterally. Again, this had been accessed on the first pass. The tunnel track port pocket anesthetized with 1% lidocaine local. Transverse incision made inferior subcu. Port pocket created with aid of cautery. Port secured to the chest wall with Prolene suture x2. Catheter tunneled down advanced into the port pocket area. Dilator break away sheath able to be passed over the guide wire. Catheter fed down. The tip was somewhere in the distal superior vena cava. Again, motion artifact patient moving and body habitus difficult to tell exact position but appeared to be in the distal superior vena cava. Lung miranda noted to be up bilaterally. Catheter cut to appropriate length when the patient reached up under the drape. He did not touch the port or the catheter itself. Required redraping the area protecting where he had reached up on the opposite of his chest. His IV apparently became disconnected. Once new gloves were obtained and new pick-up as he came close to touching the [place]akey pick-up as well as instruments. New gloves and instruments were obtained. At this point catheter cut to appropriate length, snapped on the port with the hub. The port aspirated dark, nonpulsatile venous return and flushed with heparinized saline with ease. Good hemostasis noted. Subcu closed with 3-0 Vicryl, skin closed with 4-0 Vicryl. Cannulation stab wound closed with 4-0 Vicryl. Steri-Strips and sterile dressing applied. The patient tolerated the procedure well. Difficult case given his body habitus but he tolerated the procedure well. Findings discussed with the family out in the waiting area. He could use the port today if needed. He was sent to the recovery room in stable condition. He had some motion artifact on the C-arm so it was elected to go ahead and get follow up portable chest x-ray which is pending. He tolerated the procedure well. There were no immediate complications.
== END 2019-02-17 17:27 | disposition home or self-care (01) ==
LOC: SDC 11:52
PROVIDERS: ATTEND Surgery
DX: Z45.2 Encounter for adjustment and management of vascular access device (principal); G70.00 Myasthenia gravis without (acute) exacerbation; I10 Essential (primary) hypertension; Z79.899 Other long term (current) drug therapy
CPT/HCPCS: 36561; 71045; 77001; C1788; J0360; J0690; J1642; J2250; J2704

== ENCOUNTER 2019-03-10 08:04 | Day surgery (SDC) | payer OTHER ==
--- NOTE | 2019-03-10 07:49 | HP ---
DATE OF SURGERY: 03/10/2019 HISTORY OF PRESENT ILLNESS: The patient is a 54 year-old has myasthenia gravis and gets frequent infusions and has limited IV access. He had Port-A-Cath placed recently, was working quite well at the time of the procedure and placement. Apparently it infiltrated sometime thereafter and has been difficult to infuse. He was sent for portagram and for some reason radiology could not access the port. He is in need of adjunct faculty for medical terminology access. Options were discussed to revise the pocket versus remove or replace the Port-A-Cath. He is in need of adjunct faculty for medical terminology access. PAST MEDICAL/SURGICAL HISTORY: He has prior history of scalp basal cell cancer removed in the past. He had a fatty cyst removed in the past. MEDICATIONS: Mestinon, pyridostigmine, Hyzaar, Bystolic, azathioprine. ALLERGIES: NKDA. FAMILY HISTORY: Negative in regards to this problem. SOCIAL HISTORY: He chews tobacco, denies smoking. No alcohol abuse. REVIEW OF SYSTEMS: Fourteen systems reviewed. He is overweight otherwise pertinent for as noted above. No chest pain or palpitations. PHYSICAL EXAMINATION: GENERAL: No acute distress. HEENT: Sclerae nonicteric. NECK: No JVD. CHEST: Equal excursion, nonlabored breathing. His port incision is healing well. CVS: Regular rate and rhythm. ABDOMEN: Soft, nondistended. EXTREMITIES: No significant edema. NEURO: Alert, moving extremities symmetrically. IMPRESSION: History of infiltration of Port-A-Cath with problems accessing despite working very well at the time of placement. As there were problems and the fact they could not do a portagram I feel he would benefit from revision of port pocket, possible replacement or removal of Port-A-Cath. General risk of anesthesia or sedation, risk of deep venous thrombosis, pulmonary embolism, pneumonia, risk of port infection possibly requiring removal, risk of port fracture or failure possibly requiring removal or replacement, risk of pneumothorax or thrombosis, general risk of aches, pains, possible need for moving port site to a different location. He understands the above but not limited to, will proceed with revision of port pocket, possible removal or replacement of Port-A-Cath as an outpatient.
[~2019-03-10 08:04] MED LIST changes: +Lactated Ringers 1,000 ML IV ONE; -Lactated Ringers 1,000 ML IV SCH; +XYLOCAINE 1% HCL 20 ML MDV ONE
[2019-03-10] MEDS ORDERED: Lactated Ringers 1,000 ML IV ONE (08:21)
[2019-03-10] MEDS ORDERED: Lactated Ringers 1,000 ML IV SCH (08:30)
[2019-03-10] MEDS ORDERED: KEFZOL 1 GM** 3 G in Sodium Chloride 0.9% 50 ML 50 ML IV SCH (08:30)
[2019-03-10] MEDS ORDERED: Versed 2 MG/2 ML Injection ONE (09:21)
[2019-03-10] MEDS ORDERED: Versed 2 MG/2 ML Injection IV PRN (09:22)
[2019-03-10] MEDS ORDERED: DIPRIVAN 200 MG/20 ML IV ONE ×3 (10:21→10:58)
[2019-03-10] MEDS ORDERED: Ketamine HCl 50 MG/ML ONE (10:23)
[2019-03-10] MEDS ORDERED: NORCO 5/325 MG PO PRN (11:45)
[2019-03-10] MEDS ORDERED: NORCO 5/325 MG ONE (11:46)
[2019-03-10 12:29] VITALS: O2SAT 93
[2019-03-10 12:39] VITALS: BP 173/93; PULSE 76
--- NOTE | 2019-03-10 14:43 | OP ---
SURGERY DATE/TIME: 03/10/2019 1022 PREOPERATIVE DIAGNOSIS: History of infiltrated port pocket, problems with radiology accessing port. POSTOPERATIVE DIAGNOSIS: Infiltrated port pocket, functional port. PROCEDURES: 1) Revision port pocket. 2) Removal of old port. 3) Replacement with new broader surface port with C-arm fluoroscopy. SURGEON: Dr. Pedro Dempsey. ANESTHESIA: MAC. ESTIMATED BLOOD LOSS: Minimal. INDICATIONS: As noted above. Risks and benefits explained in detail and not limited to and consent obtained. The patient previously had a port functioning well at the time of original placement, had infiltration, had a bunch of fluid, had difficult access and radiology had problems with portagram for some reason. Therefore is in need of middle or intermediate school principal access. He preferred to be taken back to have pocket revised and/or port replaced. Consent had been obtained. DESCRIPTION OF PROCEDURE AND FINDINGS: The patient is taken to the operating room. MAC anesthesia introduced. After official time out and no disagreement with planned procedure, chest prepped and draped in usual sterile fashion. Excising his old scar it was healing well. Dissection carried down to the pocket. He had some thin, clear fluid. No evidence of any infection, redness or warmth. Prior white port was visualized and it easily aspirated blood and easily flushed with heparinized saline. However, because they had problems accessing it in the past and given his obesity it was elected to go ahead and revise this port. The subcu fat pad was thinned even more. It had been thinned originally. It was thinned even more and as they had a different model port that was broader base it was felt it would be better to switch this port out. Therefore the old port was removed. Catheter just shortened slightly. The new port secured to the chest wall with Prolene sutures x2. The catheter was snapped onto the port as the catheter tip was still in good location in distal superior vena cava. The catheter was snapped on the port with the hub. Port aspirated dark, nonpulsatile venous return with ease and flushed with injectable saline originally and then packed with heparinized saline without difficulty. He had a little bit of ooze after the initial heparin injection but appeared to have good hemostasis at this point. Again, the port pocket had been thinned as well as possible preserving the blood supply to the skin overlying it. Additional fat pad had been removed. Copious amount of irrigation irrigated clear. Good hemostasis noted. Port had been secured to the chest wall with Prolene sutures x2. C-arm fluoroscopy confirmed the catheter tip was down in the superior vena cava and also confirmed the general coverage of the port connected to the catheter tip and around. No evidence of any kinks or issues from that standpoint. At this point as the port was flushing and aspirating with ease, the pocket had been revised and fat pad thinned out even further. The deep subcu closed with 3-0 Vicryl, superficial subcu closed with 3-0 Vicryl, skin closed with 4-0 Vicryl. Steri-Strips and sterile dressing applied. Prior to doing all of this 1% Marcaine local had been infiltrated in field pattern around this area. The patient tolerated the procedure well. There were no immediate complications. Findings discussed with the family out in the waiting area.
--- NOTE | 2019-03-10 18:43 | XRAY ---
Exam: Fluoroscopy for venous access from 03/10/2019. Comparison: Fluoroscopy for venous access from 02/24/2019. Indication: Port placement. 3 seconds of intraoperative fluoroscopy was utilized. Findings: 2 intraoperative C-arm images were obtained. I see a left-sided port with the tip extending into the mid SVC pointing inferiorly and slightly toward the left. There appears be minimal convexity of the upper thoracic spine toward the left and the mid thoracic spine toward the right. No contrast was utilized. Impression: 1. Left-sided port catheter with distal end pointing inferiorly and slightly toward the left within the mid SVC. No left-sided pneumothorax is seen.
== END 2019-03-10 12:45 | disposition home or self-care (01) ==
LOC: SDC 08:04
PROVIDERS: ATTEND Surgery
DX: T82.898A Other specified complication of vascular prosthetic devices, implants and grafts, initial encounter (principal); G70.00 Myasthenia gravis without (acute) exacerbation; Z79.899 Other long term (current) drug therapy
CPT/HCPCS: 36582; 77001; C1788; J0690; J1642; J2250; J2704; A9270-GY

== ENCOUNTER 2019-12-15 17:08 | Observation (INO) | payer OTHER ==
[2019-12-15] MEDS ORDERED: Sodium Chloride 0.9% 500 ML 500 ML IV SCH (17:30)
[2019-12-15] MEDS: Zofran 4 MG/2 ML VIAL IV PRN (18:11)
[2019-12-15] MEDS: MORPHINE SULFATE 10 MG/ML IV PRN (18:11)
[2019-12-15] MEDS: Lactated Ringers 1,000 ML IV SCH (18:15)
[2019-12-16] MEDS: MORPHINE SULFATE 10 MG/ML IV PRN (04:33)
[2019-12-16] MEDS: Zofran 4 MG/2 ML VIAL IV PRN (04:34)
[2019-12-16 04:50] LABS: Hematocrit 42.6 % (42-50); Hemoglobin 13.4 gm/dl (12.5-18.0); Mean Cell Volume 103.1 fl (78-100); Mean Corpuscular Hemoglobin 32.4 pg (26-32); Mean Corpuscular Hgb Concent. 31.5 g/dl (32-36); Mean Platelet Volume 10.1 fl (7.5-11.0); Platelet Count 213 K/mm3 (150-450); Red Blood Count 4.13 M/mm3 (4.1-5.6); Red Cell Distribution Width 15.4 % (11.5-14.0); White Blood Count 6.7 K/mm3 (4.0-10.5)
[2019-12-16 05:13] LABS: ALBUMIN 3.8 g/dL (3.5-5.0); ALKALINE PHOSPHATASE 58 U/L (38-126); AMYLASE 105 U/L (30-110); ANION GAP 8.7 MEQ/L (5-15); BLOOD UREA NITROGEN 14 mg/dL (9-20); CHLORIDE 110 mmol/L (98-107); Calcium 8.9 mg/dL (8.4-10.2); Carbon Dioxide 30 mmol/L (22-30); Creatinine 1 0.89 mg/dL (0.66-1.25); Glucose 93 mg/dL (74-106); LIPASE 529 U/L (23-300); SGOT/AST 31 U/L (17-59); SGPT/ALT 41 U/L (0-50); SODIUM 144 mmol/L (137-145); Total Protein 7.6 g/dL (6.3-8.2)
[2019-12-16] MEDS: Lactated Ringers 1,000 ML IV SCH ×2 (06:08→20:10)
--- NOTE | 2019-12-16 07:32 | PCM.HP.ADD ---
Addendum to History & Physical - History & Physical Addendum Addendum to History & Physical: This certifies that the History & Physical in the electronic chart reflects the current health status of the patient. If there are changes in the H&P these changes/exceptions are listed as follows.
--- NOTE | 2019-12-16 09:09 | PCM.NOTE ---
Date and Time: 12/16/19903 Subjective Assessment: Pt not feeling better, pain is 8/10. Last night the pain med was helping, but it seems like today the med is making him more nauseated. Pt notes he will need to eat in order to take his MG medicine. - Review of Systems Constitutional: No Fever Abdominal/Gastrointestinal: Abdominal Pain Musculoskeletal: Back Pain Objective Exam General Appearance: no apparent distress, alert, obese Neurologic Exam: oriented x 3, cooperative Skin Exam: normal color, warm, dry, No rash Eye Exam: eyes nml inspection Ears, Nose, Throat Exam: moist mucous membranes Neck Exam: normal inspection Respiratory Exam: normal breath sounds, lungs clear, No crackles/rales, No rhonchi, No wheezing Cardiovascular Exam: regular rate/rhythm, normal heart sounds, No murmur Gastrointestinal/Abdomen Exam: soft, normal bowel sounds, tenderness (inferior to umbilicus, to the R and L of midline, R>L), No mass, No guarding, No rebound Extremity Exam: normal inspection, No pedal edema, No swelling Back Exam: normal inspection, No rash OBJECTIVE DATA Vital Signs: Vital Signs - 24 hr Temp Pulse Resp BP Pulse Ox 12/16/19 07:30 97.7 F 60 21 129/78 94 L 12/16/19 06:58 92 L 12/16/19 04:00 98.3 F 67 20 118/64 92 L 12/16/19 00:00 97.9 F 62 18 121/67 94 L 12/15/19 18:30 97.9 F 80 20 186/88 93 L 12/15/19 18:28 97.9 F 80 20 186/88 93 L 12/15/19 18:05 97.9 F 80 18 196/85 93 L Pain Assessment - Last Documented Pain Intensity 5 Pain Scale Used 0-10 Pain Scale Intake and Output: Intake & Output 12/13/19 12/14/19 12/15/19 12/16/19 11:59 11:59 11:59 11:59 Intake Total 1990 Output Total 500 Balance 1490 Weight 142.3 kg Lab Results: Lab Results-Last 24 Hours 12/16/19 12/16/19 Range/Units 04:40 04:40 WBC 6.7 (4.0-10.5) K/mm3 RBC 4.13 (4.1-5.6) M/mm3 Hgb 13.4 (12.5-18.0) gm/dl Hct 42.6 (42-50) % MCV 103.1 H (78-100) fl MCH 32.4 H (26-32) pg MCHC 31.5 L (32-36) g/dl RDW 15.4 H (11.5-14.0) % Plt Count 213 (150-450) K/mm3 MPV 10.1 (7.5-11.0) fl Sodium 144 (137-145) mmol/L Potassium 4.0 (3.5-5.1) mmol/L Chloride 110 H (98-107) mmol/L Carbon Dioxide 30 (22-30) mmol/L Anion Gap 8.7 (5-15) MEQ/L BUN 14 (9-20) mg/dL Creatinine 0.89 (0.66-1.25) mg/dL Estimated GFR > 60.0 ML/MIN Glucose 93 (74-106) mg/dL Calcium 8.9 (8.4-10.2) mg/dL Total Bilirubin 0.70 (0.2-1.3) mg/dL AST 31 (17-59) U/L ALT 41 (0-50) U/L Alkaline Phosphatase 58 (38-126) U/L Serum Total Protein 7.6 (6.3-8.2) g/dL Albumin 3.8 (3.5-5.0) g/dL Amylase 105 (30-110) U/L Lipase 529 H (23-300) U/L Radiology Exams: Radiology Procedures Category Date Time Status GALLBLADDER [US] Routine Exams 12/16/19 Ordered Assessment/Plan (1) Pancreatitis Current Visit: Yes Status: Acute Qualifiers: Chronicity: acute Pancreatitis type: idiopathic Acute pancreatitis complication: no infection or necrosis Qualified Code(s): K85.00 - Idiopathic acute pancreatitis without necrosis or infection Assessment & Plan: Will give several boluses of fluid throughout the day. Recheck labs in a.m. His WBC were nl and CT scan nonacute. Code(s): K85.90 - ACUTE PANCREATITIS WITHOUT NECROSIS OR INFECTION, UNSP (2) Abdominal pain Current Visit: Yes Status: Acute Qualifiers: Abdominal location: periumbilical Qualified Code(s): R10.33 - Periumbilical pain Assessment & Plan: Most likely the pancreatitis, but I did culture urine in case that is an issue as well. 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 Will add phenergan for nausea. Code(s): R10.9 - UNSPECIFIED ABDOMINAL PAIN (3) Back pain Current Visit: Yes Status: Acute Qualifiers: Back pain location: low back pain Assessment & Plan: Pain is a little inferior to flanks bilat. He did have CT abd/pelvis yesterday ; no renal stones (was suspicious as he had blood in the urine). I did order a Urine Culture in the event he was over hydrating and diluting the WBC in the urine. Code(s): M54.9 - DORSALGIA, UNSPECIFIED
[2019-12-16] MEDS ORDERED: Phenergan 25 MG INJ IV PRN (09:10)
[2019-12-16] MEDS ORDERED: Sodium Chloride 0.9% 1000 ML 1,000 ML IV STA (09:11)
[2019-12-16] MEDS ORDERED: MEDICATION INTERVENTION PO SCH (09:30)
[2019-12-16] MEDS ORDERED: NON-FORMULARY ITEM (Nebivolol Hcl [Bystolic] 5 MG) PO SCH (10:00)
[2019-12-16] MEDS ORDERED: NON-FORMULARY ITEM (Losartan/Hydrochlorothiazide [Losartan-Hctz 100-12.5 Mg Tab] 1 EACH) PO SCH (10:00)
[2019-12-16] MEDS ORDERED: PYRIDOSTIGMINE BROMIDE 180 MG PO SCH (10:00)
[2019-12-16] MEDS ORDERED: AZATHIOPRINE PO SCH (10:00)
[2019-12-16] MEDS: DILAUDID 2 MG INJECTION IV PRN ×3 (10:20→22:01)
--- NOTE | 2019-12-16 11:33 | XRAY ---
Indication: Abdomen pain. Two-dimensional gallbladder sonogram performed. Comparison: October 04, 2012. Pancreas not well seen due to overlying bowel gas. Gallbladder normally distended without gallstones, wall thickening, or pericholecystic fluid. Common bile duct measures 4 mm. No intrahepatic biliary distention. Again mild fatty echogenic liver without focal solid/cystic mass, hepatomegaly, or ascites. Right kidney sonographically normal measuring 12.2 cm in length. Impression: Pancreas not evaluated. Fatty liver. Remaining gallbladder sonogram is negative.
[2019-12-16] MEDS: Sodium Chloride 0.9% 1000 ML 1,000 ML IV SCH ×2 (13:18→18:26)
[2019-12-16] MEDS: PATIENT OWN MEDICATION PO SCH ×2 (13:19)
[2019-12-16] MEDS: Bystolic 5 MG PO SCH (13:20)
[2019-12-16] MEDS: hydroDIURIL 25 MG PO SCH (13:22)
[2019-12-16] MEDS: Cozaar 50 MG PO SCH (13:23)
[2019-12-17] MEDS: DILAUDID 2 MG INJECTION IV PRN ×3 (03:11→17:36)
[2019-12-17 04:56] LABS: Absolute Neutrophil Ct (ANC) 6.74 (1.4-6.9); BASOPHIL % 0.2 % (0.0-0.4); Basophil (Absolute #) 0.02 (0-0.4); Eosinophil % 1.5 % (0.00-5.0); Eosinophil (Absolute #) 0.13 (0-0.5); Hematocrit 41.4 % (42-50); Hemoglobin 13.1 gm/dl (12.5-18.0); Lymphocytes % 12.6 % (24.0-44.0); Mean Cell Volume 103.5 fl (78-100); Mean Corpuscular Hemoglobin 32.8 pg (26-32); Mean Corpuscular Hgb Concent. 31.6 g/dl (32-36); Mean Platelet Volume 10.1 fl (7.5-11.0); Monocyte (Absolute #) 0.77 (0.0-1.3); Monocytes % 8.8 % (0.0-12.0); Neutrophil % 76.9 % (36.0-66.0); Platelet Count 202 K/mm3 (150-450); Red Cell Distribution Width 14.9 % (11.5-14.0); White Blood Count 8.8 K/mm3 (4.0-10.5)
[2019-12-17 05:05] LABS: ALBUMIN 3.8 g/dL (3.5-5.0); ALKALINE PHOSPHATASE 56 U/L (38-126); ANION GAP 7.9 MEQ/L (5-15); BLOOD UREA NITROGEN 12 mg/dL (9-20); CHLORIDE 106 mmol/L (98-107); Carbon Dioxide 30 mmol/L (22-30); Creatinine 1 0.77 mg/dL (0.66-1.25); Glucose 100 mg/dL (74-106); LIPASE 170 U/L (23-300); MAGNESIUM 1.7 mg/dL (1.6-2.3); Potassium 3.7 mmol/L (3.5-5.1); SGOT/AST 28 U/L (17-59); SGPT/ALT 40 U/L (0-50); SODIUM 140 mmol/L (137-145); Total Protein 7.3 g/dL (6.3-8.2)
[2019-12-17] MEDS: Lactated Ringers 1,000 ML IV SCH ×2 (08:35→21:26)
[2019-12-17] MEDS: ENOXAPARIN SODIUM SQ SCH (08:35)
[2019-12-17] MEDS: Bystolic 5 MG PO SCH (08:36)
[2019-12-17] MEDS: Cozaar 50 MG PO SCH (08:37)
[2019-12-17] MEDS: hydroDIURIL 25 MG PO SCH (08:37)
[2019-12-17] MEDS: PATIENT OWN MEDICATION PO SCH ×2 (08:41→08:42)
[2019-12-17] MEDS ORDERED: Apresoline 25 MG TABLET PO PRN (08:52)
--- NOTE | 2019-12-17 08:52 | PCM.NOTE ---
Date and Time: 12/17/19 0848 Subjective Assessment: He is no longer c/o back pain, but suprapubic and LLQ pain since last night. He also started having urinary frequency and dysuria. Bessy bland diet. No more nausea or headache since morphine was switched to dilaudid (and better pain control on 1mg instead of 0.5mg). Pain currently 12/27. - Review of Systems Constitutional: No Fever Abdominal/Gastrointestinal: Abdominal Pain Genitourinary Symptoms: Dysuria, Frequency Objective Exam General Appearance: mild distress, obese Neurologic Exam: oriented x 3, cooperative Skin Exam: normal color, warm, dry, No rash Eye Exam: eyes nml inspection Ears, Nose, Throat Exam: moist mucous membranes Neck Exam: normal inspection Respiratory Exam: normal breath sounds, lungs clear, No crackles/rales, No rhonchi, No wheezing Cardiovascular Exam: regular rate/rhythm, normal heart sounds, No murmur Gastrointestinal/Abdomen Exam: soft, tenderness (quite ttp LLQ and suprapubic), guarding, No normal bowel sounds (hypoactive but present), No mass, No rebound Extremity Exam: normal inspection, No pedal edema, No swelling Back Exam: normal inspection, No rash OBJECTIVE DATA Vital Signs: Vital Signs - 24 hr Temp Pulse Resp BP Pulse Ox 12/17/19 08:00 97.7 F 77 18 162/87 95 12/17/19 06:54 96 12/17/19 03:49 98.8 F 63 20 174/84 92 L 12/16/19 23:28 98.4 F 57 L 20 132/77 91 L 12/16/19 19:38 93 L 12/16/19 19:37 97.8 F 52 L 18 153/75 96 12/16/19 16:00 98.0 F 68 19 140/97 93 L 12/16/19 11:39 98.2 F 64 18 131/75 92 L Pain Assessment - Last Documented Pain Intensity 6 Pain Scale Used 0-10 Pain Scale Intake and Output: Intake & Output 12/14/19 12/15/19 12/16/19 12/17/19 11:59 11:59 11:59 11:59 Intake Total 1989 5853 Output Total 500 1400 Balance 1490 4453 Weight 142.3 kg Lab Results: Lab Results-Last 24 Hours 12/17/19 12/17/19 Range/Units 04:25 04:25 WBC 8.8 (4.0-10.5) K/mm3 RBC 4.00 L (4.1-5.6) M/mm3 Hgb 13.1 (12.5-18.0) gm/dl Hct 41.4 L (42-50) % MCV 103.5 H (78-100) fl MCH 32.8 H (26-32) pg MCHC 31.6 L (32-36) g/dl RDW 14.9 H (11.5-14.0) % Plt Count 202 (150-450) K/mm3 MPV 10.1 (7.5-11.0) fl Gran % 76.9 H (36.0-66.0) % Eos # (Auto) 0.13 (0-0.5) Absolute Lymphs (auto) 1.10 (1.0-4.6) Absolute Monos (auto) 0.77 (0.0-1.3) Lymphocytes % 12.6 L (24.0-44.0) % Monocytes % 8.8 (0.0-12.0) % Eosinophils % 1.5 (0.00-5.0) % Basophils % 0.2 (0.0-0.4) % Absolute Granulocytes 6.74 (1.4-6.9) Basophils # 0.02 (0-0.4) Sodium 140 (137-145) mmol/L Potassium 3.7 (3.5-5.1) mmol/L Chloride 106 (98-107) mmol/L Carbon Dioxide 30 (22-30) mmol/L Anion Gap 7.9 (5-15) MEQ/L BUN 12 (9-20) mg/dL Creatinine 0.77 (0.66-1.25) mg/dL Estimated GFR > 60.0 ML/MIN Glucose 100 (74-106) mg/dL Calcium 9.0 (8.4-10.2) mg/dL Magnesium 1.7 (1.6-2.3) mg/dL Total Bilirubin 1.20 (0.2-1.3) mg/dL AST 28 (17-59) U/L ALT 40 (0-50) U/L Alkaline Phosphatase 56 (38-126) U/L Serum Total Protein 7.3 (6.3-8.2) g/dL Albumin 3.8 (3.5-5.0) g/dL Lipase 170 (23-300) U/L Radiology Exams: Radiology Procedures Category Date Time Status GALLBLADDER [US] Routine Exams 12/16/19 11:08 Completed Assessment/Plan (1) Pancreatitis Current Visit: Yes Status: Resolved Qualifiers: Chronicity: acute Pancreatitis type: idiopathic Acute pancreatitis complication: no infection or necrosis Qualified Code(s): K85.00 - Idiopathic acute pancreatitis without necrosis or infection Assessment & Plan: lipase wnl this morning Code(s): K85.90 - ACUTE PANCREATITIS WITHOUT NECROSIS OR INFECTION, UNSP (2) Abdominal pain Current Visit: Yes Status: Acute Qualifiers: Abdominal location: left lower quadrant Qualified Code(s): R10.32 - Left lower quadrant pain Assessment & Plan: the shifting of his abd pain to LLQ is suspicious for renal stone, however he did have CT abd/pelvis without contrast and no stone was seen. However, will start pt on abx in the event he has UTI (his culture grew out <10,000 CFUs however) and start straining his urine. Code(s): R10.9 - UNSPECIFIED ABDOMINAL PAIN (3) Back pain Current Visit: Yes Status: Resolved Qualifiers: Back pain location: low back pain Code(s): M54.9 - DORSALGIA, UNSPECIFIED (4) History of myasthenia gravis Current Visit: No Status: Chronic Code(s): Z86.69 - PERSONAL HISTORY OF DIS OF THE NERVOUS SYS AND SENSE ORGANS
[2019-12-17] MEDS: ROCEPHIN 1 Gm-D5w 50 ml Bag** 1 G/50 ML IVPB IV SCH (09:10)
[2019-12-17] MEDS: Sodium Chloride 0.9% 1000 ML 1,000 ML IV SCH ×4 (09:38→09:39)
[2019-12-18 06:33] VITALS: O2SAT 92
[2019-12-18 06:55] VITALS: BP 148/80; PULSE 75
[2019-12-18] MEDS: ROCEPHIN 1 Gm-D5w 50 ml Bag** 1 G/50 ML IVPB IV SCH (08:06)
[2019-12-18 08:07] LABS: Hematocrit 41.6 % (42-50); Hemoglobin 13.7 gm/dl (12.5-18.0); Mean Corpuscular Hemoglobin 33.6 pg (26-32); Mean Corpuscular Hgb Concent. 32.9 g/dl (32-36); Mean Platelet Volume 9.9 fl (7.5-11.0); Platelet Count 194 K/mm3 (150-450); Red Blood Count 4.08 M/mm3 (4.1-5.6); Red Cell Distribution Width 14.7 % (11.5-14.0); White Blood Count 8.4 K/mm3 (4.0-10.5)
[2019-12-18 08:18] LABS: ALBUMIN 4.1 g/dL (3.5-5.0); ALKALINE PHOSPHATASE 60 U/L (38-126); BLOOD UREA NITROGEN 12 mg/dL (9-20); CHLORIDE 104 mmol/L (98-107); Calcium 9.5 mg/dL (8.4-10.2); Carbon Dioxide 32 mmol/L (22-30); Creatinine 1 0.89 mg/dL (0.66-1.25); Glucose 99 mg/dL (74-106); LIPASE 68 U/L (23-300); Potassium 3.8 mmol/L (3.5-5.1); SGOT/AST 28 U/L (17-59); SGPT/ALT 37 U/L (0-50); SODIUM 142 mmol/L (137-145); Total Protein 7.9 g/dL (6.3-8.2)
[2019-12-18] MEDS: Cozaar 50 MG PO SCH (08:29)
[2019-12-18] MEDS: Bystolic 5 MG PO SCH (08:29)
[2019-12-18] MEDS: ENOXAPARIN SODIUM SQ SCH (08:29)
[2019-12-18] MEDS: hydroDIURIL 25 MG PO SCH (08:30)
[2019-12-18] MEDS: PATIENT OWN MEDICATION PO SCH ×2 (08:31)
--- NOTE | 2019-12-18 09:03 | PCM.DS ---
Discharge Summary Date of Admission: 12/15/19 17:51 Admitting Physician: MARIA ALEJANDRA MOHAMUD Primary Care Provider: MARIA ALEJANDRA MOHAMUD Allergies Allergies No Known Drug Allergies Allergy (Verified 12/15/19 18:19) Hospital Summary - Hospital Course Hospital Course: Pt is a 54 yo pt of mine from [facility] with myasthenia gravis and HTN who was admitted directly from office with abdominal pain, flank pain, and pancreatitis. His lipase was elevated to 529 on his second hospital day. His IV fluids were increased. Yesterday he was complaining more of supra pubic pain radiating to L groin. (CT abd/pelvis with/without contrast was neg in the ER. UCx grew <10,000 CFUs, nl skin latricia; however with his increased sx yesterday of suprapubic pain and frequency, I did start him on IV rocephin. This morning his suprapubic pain is much better, more "sore" and worse when up to the restroom. Denies any radiation to the groin. Pt to be discharged to home on po antibiotics, finish 7d total course (5 more days). F/u with me in 1 week. - Vitals & Intake/Output Vital Signs: Vital Signs Temperature 98.2 F 12/18/19 06:54 Pulse Rate 75 12/18/19 06:54 Respiratory Rate 20 12/18/19 06:54 Blood Pressure 148/80 12/18/19 06:54 O2 Sat by Pulse Oximetry 92 L 12/18/19 06:54 Intake & Output: Intake & Output 12/15/19 12/16/19 12/17/19 12/18/19 11:59 11:59 11:59 11:59 Intake Total 1989 5853 2218 Output Total 500 1400 700 Balance 1490 4453 1518 Weight 142.3 kg - Lab Result Diagrams: 12/18/19 08:05 12/18/19 08:05 Lab Results-Last 24 Hrs: Lab Results-Last 24 Hours 12/18/19 12/18/19 Range/Units 08:05 08:05 WBC 8.4 (4.0-10.5) K/mm3 RBC 4.08 L (4.1-5.6) M/mm3 Hgb 13.7 (12.5-18.0) gm/dl Hct 41.6 L (42-50) % MCV 102.0 H (78-100) fl MCH 33.6 H (26-32) pg MCHC 32.9 (32-36) g/dl RDW 14.7 H (11.5-14.0) % Plt Count 194 (150-450) K/mm3 MPV 9.9 (7.5-11.0) fl Sodium 142 (137-145) mmol/L Potassium 3.8 (3.5-5.1) mmol/L Chloride 104 (98-107) mmol/L Carbon Dioxide 32 H (22-30) mmol/L Anion Gap 10.0 (5-15) MEQ/L BUN 12 (9-20) mg/dL Creatinine 0.89 (0.66-1.25) mg/dL Estimated GFR > 60.0 ML/MIN Glucose 99 (74-106) mg/dL Calcium 9.5 (8.4-10.2) mg/dL Total Bilirubin 1.90 H (0.2-1.3) mg/dL AST 28 (17-59) U/L ALT 37 (0-50) U/L Alkaline Phosphatase 60 (38-126) U/L Serum Total Protein 7.9 (6.3-8.2) g/dL Albumin 4.1 (3.5-5.0) g/dL Lipase 68 (23-300) U/L Micro Results-Entire Visit: Microbiology 12/16/19 08:59 Urine Culture - Final Urine, Void <10K NORMAL SKIN LATRICIA PROBABLE SKIN CONTAMINANT - Radiology Exams Ordered Rad Exams-Entire Visit: Radiology Procedures Category Date Time Status GALLBLADDER [US] Routine Exams 12/16/19 11:08 Completed - Procedures and Test Procedures and Tests throughout Hospitalization: Therapy Orders & Screens 12/15/19 20:14 BiPap/CPAP ROUTINE Comment: PER HOME USE Diagnosis: abd pain 12/17/19 22:34 Oxygen Nasal Cannula 2 lpm Comment: Diagnosis: abd pain Discharge Exam General Appearance: no apparent distress, alert, obese Neurologic Exam: oriented x 3, cooperative Eye Exam: eyes nml inspection Ears, Nose, Throat Exam: moist mucous membranes Neck Exam: normal inspection Respiratory Exam: normal breath sounds, lungs clear, No crackles/rales, No rhonchi, No wheezing Cardiovascular Exam: regular rate/rhythm, normal heart sounds, No murmur Gastrointestinal/Abdomen Exam: soft, normal bowel sounds, tenderness (suprapubic ), No mass, No guarding, No rebound Back Exam: normal inspection, No rash Extremity Exam: normal inspection, No pedal edema, No swelling, No tenderness Skin Exam: normal color, warm, dry, No rash Final Diagnosis/Problem List - Final Discharge Diagnosis/Problem (1) Pancreatitis Current Visit: Yes Status: Resolved Code(s): K85.90 - ACUTE PANCREATITIS WITHOUT NECROSIS OR INFECTION, UNSP (2) UTI (urinary tract infection) Current Visit: Yes Status: Acute Assessment & Plan: Will continue pt on po keflex x 5 more days. Code(s): N39.0 - URINARY TRACT INFECTION, SITE NOT SPECIFIED (3) Abdominal pain Current Visit: Yes Status: Acute Assessment & Plan: much improved; will continue tx for UTI as above. Code(s): R10.9 - UNSPECIFIED ABDOMINAL PAIN (4) Back pain Current Visit: Yes Status: Resolved Code(s): M54.9 - DORSALGIA, UNSPECIFIED (5) History of myasthenia gravis Current Visit: No Status: Chronic Code(s): Z86.69 - PERSONAL HISTORY OF DIS OF THE NERVOUS SYS AND SENSE ORGANS - Discharge Disposition: Home, Self-Care Condition: Stable Prescriptions: New Cephalexin Mh 500 mg [Keflex 500 mg] 500 mg PO QID #20 capsule Continue Losartan/Hydrochlorothiazide [Losartan-Hctz 100-12.5 mg Tab] 1 each PO DAILY Nebivolol HCl [Bystolic] 5 mg PO DAILY Azathioprine [Imuran] 200 tab PO DAILY Pyridostigmine [place] [Pyridostigmine [place] ER] 180 mg PO DAILY Immun Glob G(IgG)/Gly/Iga 0-50 [Gammaplex 5 Gram/50 ml Vial] 55 g IV UD Ondansetron ODT 4 MG [Zofran Odt 4 mg] 4 mg PO Q4H PRN PRN PRN Reason: Nausea Follow up with: MARIA ALEJANDRA MOHAMUD [Primary Care Provider] - 1 Week
== END 2019-12-18 10:05 | disposition home or self-care (01) ==
LOC: MED SURG 17:51
PROVIDERS: ADMIT Family Medicine; ATTEND Family Medicine
DX: K85.90 Acute pancreatitis without necrosis or infection, unspecified (principal); N39.0 Urinary tract infection, site not specified; R10.9 Unspecified abdominal pain; G70.00 Myasthenia gravis without (acute) exacerbation; M54.9 Dorsalgia, unspecified; Z79.899 Other long term (current) drug therapy
CPT/HCPCS: 36415; 76705; 80053; 82150; 83690; 83735; 85025; 85027; 87086; 93268; 94762; G0378; J0696; J1170; J1642; J1650; J2270; J2405; J2550; A9270-GY

== ENCOUNTER 2020-01-07 06:06 | Day surgery (SDC) | payer OTHER ==
[2020-01-07] MEDS ORDERED: Lactated Ringers 1,000 ML IV ONE (07:01)
[2020-01-07] MEDS ORDERED: Sodium Chloride 0.9% 10 ML FLUSH Syringe PORT FLUSH PRN (07:07)
[2020-01-07] MEDS ORDERED: Lactated Ringers 1,000 ML IV SCH (07:30)
--- NOTE | 2020-01-07 08:57 | OP ---
SURGERY DATE/TIME: 01/07/2020 0803 PREOPERATIVE DIAGNOSES: 1) Epigastric pain. 2) Screening colonoscopy. 3) New diagnosis of pancreatitis. POSTOPERATIVE DIAGNOSES: 1) Mild gastritis. 2) Colon polyp x2. PROCEDURES: 1) EGD. 2) Colonoscopy. SURGEON: Edilson Toribio M.D. ANESTHESIA: MAC by Skip Clancy CRNA. ESTIMATED BLOOD LOSS: Minimal. SPECIMENS: Two cold forceps biopsies from the gastric antrum sent for Helicobacter pylori testing and two hot forceps polypectomies. DESCRIPTION OF PROCEDURE: After informed written consent was obtained, the patient was taken to the endoscopy suite. He was placed in the left lateral decubitus position and a bite block was inserted. He underwent monitored anesthesia and the endoscope was inserted in the posterior oropharynx and under direct visualization the esophagus was traversed. The stomach had a normal rugated gastric mucosa free of any lesions or defects. There were some mild gastritis-type changes and no obvious ulceration or bleeding in the gastric antrum. The pylorus is traversed and the duodenum appeared normal with no lesions or defects. Two cold forceps biopsies were taken from the gastric antrum and sent for Helicobacter pylori testing. The remainder of the exam was unremarkable upon withdrawal of the scope. The scope was removed and the scopes were switched. Digital rectal exam showed normal sphincter tone and no internal lesions. The scope was inserted in the rectum and sequentially the entire colonic mucosa was traversed. The level of cecum was reached and verified with direct visualization of ileocecal valve. Upon withdrawal there was a small sessile polyp in the descending colon which was removed in its entirety with hot forceps and sent for pathology. Upon further withdrawal there was another sessile polyp in the distal sigmoid colon which likewise was grasped with forceps and cauterized with complete removal of lesion. Prior to withdrawal retroflexion was performed and showed no internal lesions. The scope was removed and the patient was transferred to the recovery room in good condition.
[2020-01-07 09:25] VITALS: O2SAT 97
[2020-01-07 09:30] VITALS: BP 143/84; PULSE 71
[2020-01-08] MEDS ORDERED: Sodium Chloride 0.9% 10 ML FLUSH Syringe PORT FLUSH PRN (10:21)
== END 2020-01-07 09:42 | disposition home or self-care (01) ==
LOC: SDC 06:06
PROVIDERS: ATTEND Family Medicine
DX: Z12.11 Encounter for screening for malignant neoplasm of colon (principal); D12.4 Benign neoplasm of descending colon; K29.70 Gastritis, unspecified, without bleeding; R10.13 Epigastric pain; K85.90 Acute pancreatitis without necrosis or infection, unspecified; G70.00 Myasthenia gravis without (acute) exacerbation; I10 Essential (primary) hypertension; Z79.899 Other long term (current) drug therapy
CPT/HCPCS: 88305; J1642

== ENCOUNTER 2021-09-12 12:37 | Emergency (ER) | payer OTHER ==
[2021-09-12] MEDS ORDERED: Propofol 1000 mg/100 ml Bottle 100 ML IV ONE (12:52)
[2021-09-12 12:55] LABS: Absolute Neutrophil Ct (ANC) 8.94 (1.4-6.9); Basophil (Absolute #) 0.02 (0-0.4); Eosinophil (Absolute #) 0 (0-0.5); Hematocrit 49.3 % (42-50); Hemoglobin 15.9 gm/dl (12.5-18.0); Lymphocyte (Absolute #) 1.08 (1.0-4.6); Lymphocytes % 10.2 % (24.0-44.0); Mean Cell Volume 100.6 fl (78-100); Mean Corpuscular Hemoglobin 32.4 pg (26-32); Mean Corpuscular Hgb Concent. 32.3 g/dl (32-36); Mean Platelet Volume 10.1 fl (7.5-11.0); Monocytes % 4.7 % (0.0-12.0); Neutrophil % 84.9 % (36.0-66.0); Platelet Count 240 K/mm3 (150-450); White Blood Count 10.5 K/mm3 (4.0-10.5)
[2021-09-12] MEDS ORDERED: Zemuron 100 MG/10 ML ONE (13:00)
[2021-09-12] MEDS ORDERED: SUBLIMAZE 1000 Mcg/ 20 Ml*** 1,500 MCG in Sodium Chloride 0.9% 150 ML 120 ML IV ONE (13:00)
[2021-09-12] MEDS ORDERED: Amidate 20 MG/10 ML IV ONE (13:00)
[2021-09-12 13:18] LABS: ALBUMIN 4.3 g/dL (3.5-5.0); ALKALINE PHOSPHATASE 78 U/L (38-126); ANION GAP 13.5 MEQ/L (5-15); BLOOD UREA NITROGEN 25 mg/dL (9-20); CHLORIDE 100 mmol/L (98-107); Calcium 8.6 mg/dL (8.4-10.2); Carbon Dioxide 28 mmol/L (22-30); Creatinine 1 1.28 mg/dL (0.66-1.25); EST GLOMERULAR FILTRATION RATE > 60.0 ML/MIN; Glucose 183 mg/dL (74-106); NT PRO BNP 57.1 pg/mL (0-900); Potassium 4.1 mmol/L (3.5-5.1); SGOT/AST 64 U/L (17-59); SGPT/ALT 54 U/L (0-50); SODIUM 138 mmol/L (137-145); Total Protein 7.5 g/dL (6.3-8.2)
[2021-09-12 13:23] LABS: A-aADO2 431; ABG HEMOGLOBIN 16.2; ABG POTASSIUM 4.1 (3.5-5.1); ABG SITE LEFT RADIAL; ARTERIAL BLD GAS O2 SATURATION 99.4 % (95-100); ARTERIAL BLOOD GAS BASE EXCESS -2.9 (-2.0-2.0); ARTERIAL BLOOD GAS FIO2 100 %; ARTERIAL BLOOD GAS PCO2 83 mmHg (35-45); ARTERIAL BLOOD GAS PO2 178 mmHg (75-100); ARTERIAL BLOOD GAS pH 7.14 (7.35-7.45); CARBOXYHEMOGLOBIN 1.3 % THgb (0.0-6.9); HCO3- 28.3 (22-28); HGB O2 SAT 97.2 g/dF (94-100); Lactic Acid 2.4 (0.4-2.0); Methhemoglobin 0.8 % (1.4-1.5)
[2021-09-12] MEDS ORDERED: FEVERALL 325 MG ONE (13:25)
--- NOTE | 2021-09-12 13:26 | XRAY ---
Indication: Short of breath. Endotracheal tube and NG tube placement. Comparison: February 17, 2019. Portable chest demonstrates new endotracheal tube tip 4 cm above placido and new NG tube traversing chest with tip not included in [id number] presumed in stomach. Lungs remain underinflated with mild bibasilar infiltrates/atelectasis/effusions grossly unchanged. Heart borderline enlarged again with left Port a Cath. Bony thorax intact.
[2021-09-12] MEDS ORDERED: Sodium Chloride 0.9% 1000 ML 1,000 ML IV STA (13:33)
[2021-09-12 13:37] LABS: A-aADO2 507; ABG HEMOGLOBIN 15.1; ABG POTASSIUM 3.6 (3.5-5.1); ABG SITE LEFT BRACHIAL; ARTERIAL BLD GAS O2 SATURATION 99.3 % (95-100); ARTERIAL BLD GAS TIDAL VOLUME 650 cc; ARTERIAL BLOOD GAS BASE EXCESS -1.7 (-2.0-2.0); ARTERIAL BLOOD GAS FIO2 100 %; ARTERIAL BLOOD GAS PCO2 45 mmHg (35-45); ARTERIAL BLOOD GAS PO2 150 mmHg (75-100); ARTERIAL BLOOD GAS VENT MODE A/C; ARTERIAL BLOOD GAS pH 7.34 (7.35-7.45); HCO3- 24.3 (22-28); HGB O2 SAT 97.2 g/dF (94-100); Methhemoglobin 1.1 % (1.4-1.5)
[2021-09-12] MEDS ORDERED: FEVERALL 325 MG PR STA (13:37)
--- NOTE | 2021-09-12 13:41 | ERPHSYRPT ---
- History of Present Illness Time Seen by Provider: 09/12/21 12:55 Source: patient Exam Limitations: no limitations Patient Subjective Stated Complaint: Respiratory Distress Triage Nursing Assessment: Patient brought into ED via EMS and transferred to bed with assist of 4. EMS reports being called to patient SOB. Patient ambulated to cot... Physician History: Patient is a 56-year-old male presents to our ED via EMS for evaluation of altered mental status shortness of breath. Patient has a history of myasthenia gravis. Patient unresponsive upon arrival however HPI provided by EMS. Per report patient has been experiencing shortness of breath since yesterday. Symptoms worsened today. Patient complained that he could not catch his breath. Symptoms progressed throughout the morning. Upon EMSs arrival patient was alert and ambulatory. Upon arrival to our ED patient was unresponsive. Timing/Duration: yesterday Severity: moderate Modifying Factors: Improves With: nothing Associated Symptoms: other (Unable to determine associated symptoms due to altered mental status. Patient unable to provide HPI information) Allergies/Adverse Reactions: No Known Drug Allergies Allergy (Verified 09/12/21 12:39) Home Medications: Losartan/Hydrochlorothiazide [Losartan-Hctz 100-12.5 mg Tab] 1 each PO DAILY 04/05/15 [History] Nebivolol HCl [Bystolic] 5 mg PO DAILY 08/21/17 [History] Pyridostigmine Hollenberg [Pyridostigmine Hollenberg ER] 60 mg PO TID PRN PRN 08/22/17 [History] azaTHIOprine [Imuran] 200 tab PO DAILY 08/22/17 [History] Pyridostigmine Hollenberg [Mestinon] 180 mg PO DAILY 01/02/20 [History] Fluticasone/Salmeterol [Advair 100-50 Diskus] 1 each IH DAILY 07/29/21 [History] Hx Tetanus, Diphtheria Vaccination/Date Given: No Hx Influenza Vaccination/Date Given: (unknown) Hx Pneumococcal Vaccination/Date Given: (unknown) Immunizations Up to Date: (unknown) Travel Risk - International Travel Have you traveled outside of the country in past 3 weeks: No - Coronavirus Screening Are you exhibiting any of the following symptoms?: No Close contact with a COVID-19 positive Pt in past 14-21 Days: No - Vaccine Status Have you recieved a Covid-19 vaccination: No - Review of Systems All Other Systems: Unable due to condition - Past Medical History Pertinent Past Medical History: Yes Neurological History: Other ENT History: No Pertinent History Cardiac History: Angina, Hypertension Respiratory History: Sleep Apnea, Other Endocrine Medical History: Other Musculoskeletal History: Other GI Medical History: Pancreatitis History: No Pertinent History Psycho-Social History: No Pertinent History Male Reproductive Disorders: No Pertinent History Other Medical History: MYASTHENIA GRAVIS, pancreatitis recently dx - Past Surgical History Past Surgical History: Yes Neuro Surgical History: No Pertinent History Cardiac: No Pertinent History Respiratory: No Pertinent History Gastrointestinal: No Pertinent History Genitourinary: No Pertinent History Musculoskeletal: Orthopedic Surgery Male Surgical History: No Pertinent History Other Surgical History: knee surgery right (torn ligament,arthroscopy). cvl port placement left chest, attempted to remove welding zaire from leg as teenager but it was unsuccessful - Social History Smoking Status: Never smoker Exposure to second hand smoke: No Drug Use: none Patient Lives Alone: No - Nursing Vital Signs Nursing Vital Signs: Initial Vital Signs Temperature 97.3 F 09/12/21 12:42 Pulse Rate 129 H 09/12/21 12:42 Respiratory Rate 18 09/12/21 12:42 Blood Pressure 169/71 09/12/21 12:42 O2 Sat by Pulse Oximetry 100 09/12/21 12:42 Pain Scale Pain Intensity 0 - Physical Exam General Appearance: other (Patient unresponsive. Patient with shallow breathin g. Mottled skin.) Eye Exam: PERRL/EOMI, eyes nml inspection, No scleral icterus Ears, Nose, Throat Exam: normal ENT inspection, TMs normal, pharynx normal, moist mucous membranes Neck Exam: normal inspection, non-tender, supple, full range of motion Respiratory Exam: lungs clear, diminished breath sounds, No chest tenderness, No crackles/rales, No rhonchi, No wheezing Cardiovascular Exam: normal heart sounds, normal peripheral pulses, tachycardia, other (Mottled skin with what appears to be livedo reticularis) Gastrointestinal/Abdomen Exam: soft, other (Hypoactive bowel sounds), No tenderness, No distention, No guarding Extremity Exam: normal inspection, normal range of motion, pelvis stable, No amputations, No giraldo, No swelling Neurologic Exam: other (Patient unresponsive.) Skin Exam: mottled, other Lymphatic Exam: No adenopathy SpO2 Interpretation: normal SpO2: 100 O2 Delivery: Oxymask Procedures - Intubation Time of Intubation: 13:00 Intubation Indications: respiratory arrest Intubation Method: orotracheal, curved blade, glidescope Tube Size (cm): 8.0 Medications: Fentanyl, Propofol (Diprivan), Etomidate, Rocuronium Endotracheal Tube Confirmation: bilateral breath sounds, positive end tidal CO2, good rise & fall of chest, stable or inc of O2 sat Intubation Complications: no complications Performed By: ED Physician Post Intubation Xray: Yes - Course Nursing assessment & vital signs reviewed: Yes EKG Interpreted by Me: RATE (125), Sinus Tach, NORMAL AXIS, NORMAL INTERVALS - Radiology Exams Chest X-ray Interpretation: Teleradiologist Report (Portable chest demonstrates new endotracheal tube tip 4 cm above placido and new NG tube traversing chest with tip not included in field of view presumed in stomach. Lungs remain underinflated with bibasilar infiltrates atelectasis effusion grossly unchanged. Heart borderline enlarged again with le) - CT Exams Head CT Interpretation: Tele-radiologist Report (New paranasal sinus disease. CT head without contrast exam otherwise negative. No acute intracranial hemorrhage abnormal extra-axial fluid collection. No mass-effect. Fourth ventricle is midline without hydrocephalus. Holt-white matter differentiation preserved. Bony calvarium intact.) Ordered Tests: Active Orders 24 hr Category Date Time Status Adobe Flex Developer STAT Care 09/12/21 12:42 Active EKG-ER Only STAT Care 09/12/21 12:41 Active Cardona [Catheter-[place] Cardona] STAT Care 09/12/21 13:09 Active IV Insertion STAT Care 09/12/21 12:41 Active Pulse Oximetry (ED) STAT Care 09/12/21 12:41 Active CHEST 1 VIEW (PORTABLE) Stat Exams 09/12/21 12:42 Completed HEAD WITHOUT CONTRAST [CT] Stat Exams 09/12/21 13:40 Completed ABG [ARTERIAL BLOOD GASES] Urgent Lab 09/12/21 12:40 Completed ARTERIAL BLOOD GASES Urgent Lab 09/12/21 13:30 Completed BLOOD CULTURE Stat Lab 09/12/21 14:00 Received CBC W DIFF Stat Lab 09/12/21 12:50 Completed CMP Stat Lab 09/12/21 12:50 Completed CULTURE,URINE Stat Lab 09/12/21 13:09 Received Lactic Acid Urgent Lab 09/12/21 12:40 Completed Lactic Acid Urgent Lab 09/12/21 13:36 Completed NT PRO BNP Stat Lab 09/12/21 12:50 Completed TROPONIN Q3H Lab 09/12/21 12:50 Completed TROPONIN Q3H Lab 09/12/21 15:46 Completed TROPONIN Q3H Lab 09/12/21 18:45 Ordered TROPONIN Q3H Lab 09/12/21 21:45 Ordered TROPONIN Q3H Lab 09/13/21 00:45 Ordered UA W/RFX UR CULTURE Stat Lab 09/12/21 13:09 Completed BiPap/CPAP STAT RT 09/12/21 13:45 Completed Intubate Patient STAT RT 09/12/21 13:50 Active Intubation [Ventilator Management] STAT RT 09/12/21 13:44 Active Transfer Order Routine Transfer 09/12/21 Ordered Medication Summary Generic Name Dose Route Start Last Admin Trade Name Freq PRN Reason Stop Dose Admin Azithromycin 500 mg in 250 mls @ 250 mls/hr 09/12/21 16:08 Zithromax 500 Mg/ 250 Ml Nacl Premix IV 09/12/21 17:07 STAT STA Discontinued Medications Generic Name Dose Route Start Last Admin Trade Name Freq PRN Reason Stop Dose Admin Acetaminophen Confirm 09/12/21 13:25 Acetaminophen 325mg Suppository Administered 09/12/21 13:26 Dose 650 mg .ROUTE .STK-MED ONE Acetaminophen 650 mg 09/12/21 13:37 09/12/21 13:40 Acetaminophen 325mg Suppository MS 09/12/21 13:38 650 mg STAT STA Administration Enoxaparin Sodium 40 mg 09/12/21 16:04 Enoxaparin Sodium 40 Mg/0.4 Ml Syringe SQ 09/12/21 16:05 STAT ONE Etomidate 40 mg 09/12/21 13:00 Etomidate 20 Mg/10 Ml Amp IV 09/12/21 13:01 .STK-MED ONE Propofol Confirm 09/12/21 12:52 Propofol 1000 Mg/100 Ml Bottle Administered 09/12/21 12:53 Dose 100 mls @ ud IV .STK-MED ONE Sodium Chloride 1,000 mls @ 999 mls/hr 09/12/21 13:33 09/12/21 15:31 Sodium Chloride 0.9% 1000 Ml IV 09/12/21 14:33 Infused .Q1H1M STA Infusion Fentanyl Citrate 1,500 mcg/ 150 mls @ ud 09/12/21 13:00 Sodium Chloride IV 09/12/21 13:01 .STK-MED ONE Ceftriaxone Sodium/Dextrose 2 g in 50 mls @ 100 mls/hr 09/12/21 16:08 Rocephin 2 Gm-D5w 50ml Bag IV 09/12/21 16:37 STAT STA Rocuronium Hollenberg 1 mg 09/12/21 13:00 Rocuronium Hollenberg 100 Mg/10ml Vial .ROUTE 09/12/21 13:01 .STK-MED ONE Lab/Rad Data: Laboratory Result Diagrams 09/12/21 12:50 09/12/21 12:50 Laboratory Results 09/12/21 09/12/21 09/12/21 Range/Units 15:46 13:36 13:30 WBC (4.0-10.5) K/mm3 RBC (4.1-5.6) M/mm3 Hgb (12.5-18.0) gm/dl Hct (42-50) % MCV (78-100) fl MCH (26-32) pg MCHC (32-36) g/dl RDW (11.5-14.0) % Plt Count (150-450) K/mm3 MPV (7.5-11.0) fl Gran % (36.0-66.0) % Eos # (Auto) (0-0.5) Absolute Lymphs (auto) (1.0-4.6) Absolute Monos (auto) (0.0-1.3) Lymphocytes % (24.0-44.0) % Monocytes % (0.0-12.0) % Eosinophils % (0.00-5.0) % Basophils % (0.0-0.4) % Absolute Granulocytes (1.4-6.9) Basophils # (0-0.4) Puncture Site LEFT BRACHIAL pCO2 45 (35-45) mmHg pO2 150 H* (75-100) mmHg Base Excess -1.7 (-2.0-2.0) O2 Saturation 97.2 (94-100) g/dF ABG pH 7.34 L (7.35-7.45) ABG HCO3 24.3 (22-28) ABG O2 Sat (Measured) 99.3 (95-100) % Kirk Test na A-a Gradient 507 a/A Ratio 0.23 Hemoglobin 15.1 Carboxyhemoglobin 1.0 (0.0-6.9) % THgb Methemoglobin 1.1 L (1.4-1.5) % Potassium 3.6 (3.5-5.1) Temperature 37.0 C POC O2 Flow Rate 100 % Vent Mode A/C Tidal Volume 650 cc PEEP 5.0 cmH2O Sodium (137-145) mmol/L Chloride (98-107) mmol/L Carbon Dioxide (22-30) mmol/L Anion Gap (5-15) MEQ/L BUN (9-20) mg/dL Creatinine (0.66-1.25) mg/dL Estimated GFR ML/MIN Glucose (74-106) mg/dL Lactic Acid 1.2 (0.4-2.0) Calcium (8.4-10.2) mg/dL Total Bilirubin (0.2-1.3) mg/dL AST (17-59) U/L ALT (0-50) U/L Alkaline Phosphatase (38-126) U/L Troponin I 3.610 H* (0.000-0.034) ng/mL NT-Pro-B Natriuret Pep (0-900) pg/mL Serum Total Protein (6.3-8.2) g/dL Albumin (3.5-5.0) g/dL Urine Color (YELLOW) Urine Appearance (CLEAR) Urine pH (5-6) Ur Specific Prescott (1.005-1.025) Urine Protein (Negative) Urine Ketones (NEGATIVE) Urine Blood (0-5) Edmundo/ul Urine Nitrite (NEGATIVE) Urine Bilirubin (NEGATIVE) Urine Urobilinogen (0-1) mg/dL Ur Leukocyte Esterase (NEGATIVE) Urine WBC (Auto) (0-5) /HPF Urine RBC (Auto) (0-2) /HPF U Epithel Cells (Auto) (FEW) /HPF Urine Bacteria (Auto) (NEGATIVE) /HPF Granular Casts (Auto) (NEGATIVE) /LPF Urine Mucus (Auto) (NEGATIVE) /HPF Urine Culture Reflexed (NO) Urine Glucose (NEGATIVE) mg/dL Influenza Type A Ag (NEGATIVE) Influenza Type B Ag (NEGATIVE) RSV (PCR) (Negative) SARS-CoV-2 (PCR) (NEGATIVE) 09/12/21 09/12/21 09/12/21 Range/Units 13:23 13:09 12:50 WBC (4.0-10.5) K/mm3 RBC (4.1-5.6) M/mm3 Hgb (12.5-18.0) gm/dl Hct (42-50) % MCV (78-100) fl MCH (26-32) pg MCHC (32-36) g/dl RDW (11.5-14.0) % Plt Count (150-450) K/mm3 MPV (7.5-11.0) fl Gran % (36.0-66.0) % Eos # (Auto) (0-0.5) Absolute Lymphs (auto) (1.0-4.6) Absolute Monos (auto) (0.0-1.3) Lymphocytes % (24.0-44.0) % Monocytes % (0.0-12.0) % Eosinophils % (0.00-5.0) % Basophils % (0.0-0.4) % Absolute Granulocytes (1.4-6.9) Basophils # (0-0.4) Puncture Site pCO2 (35-45) mmHg pO2 (75-100) mmHg Base Excess (-2.0-2.0) O2 Saturation (94-100) g/dF ABG pH (7.35-7.45) ABG HCO3 (22-28) ABG O2 Sat (Measured) (95-100) % Kirk Test A-a Gradient a/A Ratio Hemoglobin Carboxyhemoglobin (0.0-6.9) % THgb Methemoglobin (1.4-1.5) % Potassium (3.5-5.1) Temperature C POC O2 Flow Rate % Vent Mode Tidal Volume cc PEEP cmH2O Sodium (137-145) mmol/L Chloride (98-107) mmol/L Carbon Dioxide (22-30) mmol/L Anion Gap (5-15) MEQ/L BUN (9-20) mg/dL Creatinine (0.66-1.25) mg/dL Estimated GFR ML/MIN Glucose (74-106) mg/dL Lactic Acid (0.4-2.0) Calcium (8.4-10.2) mg/dL Total Bilirubin (0.2-1.3) mg/dL AST (17-59) U/L ALT (0-50) U/L Alkaline Phosphatase (38-126) U/L Troponin I 0.041 H* (0.000-0.034) ng/mL NT-Pro-B Natriuret Pep (0-900) pg/mL Serum Total Protein (6.3-8.2) g/dL Albumin (3.5-5.0) g/dL Urine Color DEVEN (YELLOW) Urine Appearance CLOUDY (CLEAR) Urine pH 5.0 (5-6) Ur Specific [place] 1.029 (1.005-1.025) Urine Protein >=500 (Negative) Urine Ketones TRACE (NEGATIVE) Urine Blood MODERATE (0-5) Edmundo/ul Urine Nitrite NEGATIVE (NEGATIVE) Urine Bilirubin NEGATIVE (NEGATIVE) Urine Urobilinogen 4 (0-1) mg/dL Ur Leukocyte Esterase NEGATIVE (NEGATIVE) Urine WBC (Auto) 6-10 (0-5) /HPF Urine RBC (Auto) 26-50 (0-2) /HPF U Epithel Cells (Auto) RARE (FEW) /HPF Urine Bacteria (Auto) RARE (NEGATIVE) /HPF Granular Casts (Auto) 2-5 (NEGATIVE) /LPF Urine Mucus (Auto) MODERATE (NEGATIVE) /HPF Urine Culture Reflexed YES (NO) Urine Glucose NEGATIVE (NEGATIVE) mg/dL Influenza Type A Ag NEGATIVE (NEGATIVE) Influenza Type B Ag NEGATIVE (NEGATIVE) RSV (PCR) NEGATIVE (Negative) SARS-CoV-2 (PCR) POSITIVE A (NEGATIVE) 09/12/21 09/12/21 09/12/21 Range/Units 12:50 12:50 12:40 WBC 10.5 (4.0-10.5) K/mm3 RBC 4.90 (4.1-5.6) M/mm3 Hgb 15.9 (12.5-18.0) gm/dl Hct 49.3 (42-50) % MCV 100.6 H (78-100) fl MCH 32.4 H (26-32) pg MCHC 32.3 (32-36) g/dl RDW 15.0 H (11.5-14.0) % Plt Count 240 (150-450) K/mm3 MPV 10.1 (7.5-11.0) fl Gran % 84.9 H (36.0-66.0) % Eos # (Auto) 0 (0-0.5) Absolute Lymphs (auto) 1.08 (1.0-4.6) Absolute Monos (auto) 0.50 (0.0-1.3) Lymphocytes % 10.2 L (24.0-44.0) % Monocytes % 4.7 (0.0-12.0) % Eosinophils % 0.0 (0.00-5.0) % Basophils % 0.2 (0.0-0.4) % Absolute Granulocytes 8.94 H (1.4-6.9) Basophils # 0.02 (0-0.4) Puncture Site LEFT RADIAL pCO2 83 H* (35-45) mmHg pO2 178 H* (75-100) mmHg Base Excess -2.9 L (-2.0-2.0) O2 Saturation 97.2 (94-100) g/dF ABG pH 7.14 L* (7.35-7.45) ABG HCO3 28.3 H (22-28) ABG O2 Sat (Measured) 99.4 (95-100) % Kirk Test NOT APPLICABLE A-a Gradient 431 a/A Ratio 0.29 Hemoglobin 16.2 Carboxyhemoglobin 1.3 (0.0-6.9) % THgb Methemoglobin 0.8 L (1.4-1.5) % Potassium 4.1 4.1 (3.5-5.1) Temperature 37.0 C POC O2 Flow Rate 100 % Vent Mode Tidal Volume cc PEEP cmH2O Sodium 138 (137-145) mmol/L Chloride 100 (98-107) mmol/L Carbon Dioxide 28 (22-30) mmol/L Anion Gap 13.5 (5-15) MEQ/L BUN 25 H (9-20) mg/dL Creatinine 1.28 H (0.66-1.25) mg/dL Estimated GFR > 60.0 ML/MIN Glucose 183 H (74-106) mg/dL Lactic Acid 2.4 H (0.4-2.0) Calcium 8.6 (8.4-10.2) mg/dL Total Bilirubin 1.50 H (0.2-1.3) mg/dL AST 64 H (17-59) U/L ALT 54 H (0-50) U/L Alkaline Phosphatase 78 (38-126) U/L Troponin I (0.000-0.034) ng/mL NT-Pro-B Natriuret Pep 57.1 (0-900) pg/mL Serum Total Protein 7.5 (6.3-8.2) g/dL Albumin 4.3 (3.5-5.0) g/dL Urine Color (YELLOW) Urine Appearance (CLEAR) Urine pH (5-6) Ur Specific [place] (1.005-1.025) Urine Protein (Negative) Urine Ketones (NEGATIVE) Urine Blood (0-5) Edmundo/ul Urine Nitrite (NEGATIVE) Urine Bilirubin (NEGATIVE) Urine Urobilinogen (0-1) mg/dL Ur Leukocyte Esterase (NEGATIVE) Urine WBC (Auto) (0-5) /HPF Urine RBC (Auto) (0-2) /HPF U Epithel Cells (Auto) (FEW) /HPF Urine Bacteria (Auto) (NEGATIVE) /HPF Granular Casts (Auto) (NEGATIVE) /LPF Urine Mucus (Auto) (NEGATIVE) /HPF Urine Culture Reflexed (NO) Urine Glucose (NEGATIVE) mg/dL Influenza Type A Ag (NEGATIVE) Influenza Type B Ag (NEGATIVE) RSV (PCR) (Negative) SARS-CoV-2 (PCR) (NEGATIVE) - Progress Progress: improved Progress Note: We attempted to transfer patient. No beds are available. I spoke to nurse practitioner Fernando working with Dr. Funez at [facility]. They have no beds available. They do not anticipate any beds available for another 5 to 7 days. Our patient is on the wait list. Plan of care discussed with Dr. Bella who accepts admission to observation. Portions of this note were created with voice recognition technology. There may be grammatical, spelling, punctuation or sound alike errors 09/12/21 15:[address] Bhatia at bedside. He is aware. He feels this elevated troponin is related to Covid. Repeat EKG shows normal sinus rhythm. No ST segment changes. No ischemic findings. 09/12/21 16:40 Telemetry neuro advises IVIG 2 g/kg over 3 days. Continue Mestinon 180 mg ER for now prednisone adjunct as needed for Covid. Plasma exchange advised currently not available. 09/12/21 16:42 Elevated troponin. Heparin drip ordered. Nitro drip ordered as well. Heparin drip was a paper order 09/12/21 16:47 Patient accepted to [facility]. 09/12/21 16:48 Counseled pt/family regarding: lab results, diagnosis, rad results - Departure Departure Disposition: Observation Clinical Impression: Fever, Elevated troponin, Altered mental status, Tachycardia, SOB (shortness of breath), Acute respiratory failure, Respiratory acidosis, Myasthenia gravis, SA RS-CoV-2 positive, Sinusitis, NSTEMI (non-ST elevated myocardial infarction) Condition: Stable Critical Care Time: No Referrals: NICHOLAS CARO MD [Primary Care Provider] - Follow up/PCP as directed
[2021-09-12 14:03] LABS: INFLUENZA A NEGATIVE (NEGATIVE); INFLUENZA B NEGATIVE (NEGATIVE); RESPIRATORY SYNCTIAL VIRUS NEGATIVE (Negative)
[2021-09-12 14:07] LABS: SARS-CoV-2 Xpert Express POSITIVE (NEGATIVE)
--- NOTE | 2021-09-12 14:35 | XRAY ---
Indication: Acute mental status change. Positive Covid 19. Multiple contiguous axial images obtained through the head without contrast. Comparison: June 12, 2008. Age-appropriate global atrophy. No acute intracranial hemorrhage, abnormal extra-axial fluid collection, or mass effect. Fourth ventricle is midline without hydrocephalus. Holt-white matter differentiation preserved. Bony calvarium intact. There is now mild mucosal thickening of both ethmoid and lesser degree both maxillary/sphenoid sinuses. Mastoid air cells are clear. New incompletely visualized OG & endotracheal tubes. Impression: New paranasal sinus disease. Remaining CT head without contrast exam is again negative.
[2021-09-12 14:45] LABS: Appearance CLOUDY (CLEAR); Bacteria RARE /HPF (NEGATIVE); Bilirubin NEGATIVE (NEGATIVE); Blood MODERATE Ery/ul (0-5); Epithelial Cells RARE /HPF (FEW); Glucose NEGATIVE (NEGATIVE); Ketones TRACE (NEGATIVE); Leukocyte Esterase NEGATIVE (NEGATIVE); Mucus MODERATE /HPF (NEGATIVE); Nitrite NEGATIVE (NEGATIVE); Protein,Urine Dip >=500 (Negative); RBC 26-50 /HPF (0-2); Specific Gravity 1.029 (1.005-1.025); Urobilinogen 4 mg/dL (0-1)
[2021-09-12] MEDS ORDERED: ENOXAPARIN SODIUM SQ ONE (16:04)
[2021-09-12] MEDS ORDERED: ROCEPHIN 2 Gm-D5w 50ML BAG** 2 G/50 ML IVPB IV STA (16:08)
[2021-09-12] MEDS ORDERED: Zithromax 500 MG/ 250 ML NaCl Premix 500 MG/250 ML IVPB IV STA (16:08)
[2021-09-12 16:41] VITALS: O2SAT 100
[2021-09-12] MEDS ORDERED: Ntg 0.2MG/Ml in D5W GLASS*** 250 ML IV PRN (16:48)
[2021-09-12] MEDS ORDERED: Heparin 25,000 units/D5W 250ML PREMIX 25,000 UNITS/250 ML BAG IV ONE (16:55)
[2021-09-12] MEDS ORDERED: Ntg 0.2MG/Ml in D5W GLASS*** 250 ML IV ONE (16:55)
[2021-09-12 17:01] VITALS: BP 108/73; PULSE 81
[2021-09-12] MEDS ORDERED: Heparin 5000 UNITS/0.5 ML (HIGH RISK MED) ONE (17:14)
== END 2021-09-12 18:00 | disposition short-term general hospital (02) ==
LOC: ED 12:37
DX: U07.1 COVID-19 (principal); J96.00 Acute respiratory failure, unspecified whether with hypoxia or hypercapnia; E87.2 Acidosis; G70.01 Myasthenia gravis with (acute) exacerbation; I21.4 Non-ST elevation (NSTEMI) myocardial infarction; R50.9 Fever, unspecified; R77.8 Other specified abnormalities of plasma proteins; R40.4 Transient alteration of awareness; R00.0 Tachycardia, unspecified; J01.90 Acute sinusitis, unspecified; I10 Essential (primary) hypertension; Z79.899 Other long term (current) drug therapy
CPT/HCPCS: 0241U; 31500; 36000; 36415; 36600; 51702; 70450; 71045; 80053; 81001; 82375; 82803; 83605; 83880; 84484; 85025; 87040; 87086; 93005; 93041; 94002; 94760; 96360; 99285; Q3014; J1644; J2704; J3010; A9270-GY